=== PATIENT | male | born 1970 | race Caucasian/White ===

== ENCOUNTER 2016-10-27 12:10 | Emergency (ER) | payer BC, OTHER ==
--- NOTE | 2016-10-27 12:23 | PDOC ---
History of Present Illness - General Chief Complaint: Injury Stated Complaint: FELL, RIGHT THIGH & MOMIN,LEFT WRIST/HAND INJURY Time Seen by Provider: 10/27/16 12:23 History Source: Patient Exam Limitations: No Limitations - History of Present Illness Initial Comments: 10/27/16 12:46 THis is a 45 yo M with a history of HTN, HLD, CAD s/p prior ID and stent, Tobacco use Pt presents to the ER with a complaint of forearm and leg pain s/p mechanical fall Pt states he exited [employer], tripped over a "u boat" He landed on the right thigh No head trauma No loc No amnesia Pt got up on his own and has been ambulatory Pt took Aleeve for pain which caused him to fall asleep currently, pain is present with certain motions and with palpation of the right thigh and left wrist Rates pain 6/10, no radiation Improved with Aleeve, worse with movement or palpation Pt thought he would feel better today and when he did not, he came in for evaluation 10/27/16 13:06 PMH: HTN, HLD, CAD, PSH: stent placement Meds: Aspirin,Lipitor, Metoprolol ALL: please see chart Social (+) tobacco use GENERAL/CONSTITUTIONAL: No: fever, chills, weakness, loss of appetite. HEAD, EYES, EARS, NOSE AND THROAT: No: change in vision, ear pain, discharge, sore throat, throat swelling. CARDIOVASCULAR: No: chest pain, lightheadedness, palpitations, syncope RESPIRATORY: No: cough, shortness of breath, wheezing, hemoptysis, stridor. GASTROINTESTINAL: No: nausea, vomiting, diarrhea, abdominal cramping, rectal bleeding, constipation. GENITOURINARY: No: dysuria, hematuria, frequency, urgency, flank pain. MUSCULOSKELETAL: Yes: left wrist pain, right thigh pain SKIN: Yes: momin abrasion NEUROLOGIC: No: headache, vertigo, paresthesias, weakness ENDOCRINE: No: unexplained weight gain or loss HEMATOLOGIC/LYMPHATIC: No: anemia, easy bleeding, swelling nodes. GENERAL: The patient is in no acute distress. HEAD: Normal with no signs of trauma. EYES: PERRLA, EOMI, sclera anicteric, conjunctiva clear. ENT: Ears normal, nares patent, oropharynx clear without exudates. Moist mucous membranes. NECK: Normal range of motion, supple without lymphadenopathy, JVD, or masses. LUNGS: Breath sounds equal, clear to auscultation bilaterally. No wheezes, and no crackles. HEART:Regular rate and rhythm, normal S1 and S2 without murmur, rub or gallop. ABDOMEN: Soft, nontender, normoactive bowel sounds. No guarding, no rebound. No masses palpable. EXTREMITIES: Normal range of motion NEUROLOGICAL: Cranial nerves II through XII grossly intact. Normal speech. No focal neurological deficits. MUSCULOSKELETAL: Left wrist ulnar tenderness, (+) right thigh tenderness SKIN: 1.5 cm superficial abrasion with scab Past History - Past Medical History Allergies/Adverse Reactions: Allergies Allergy/AdvReac Type Severity Reaction Status Date / Time erythromycin base Allergy Unknown Verified 10/27/16 12:24 erythromycin lactobionate Allergy Unknown Verified 10/27/16 12:24 [From Erythrocin] Penicillins Allergy Unknown Verified 10/27/16 12:24 Home Medications: Ambulatory Orders Aspirin [Aspirin EC] 81 mg PO DAILY 10/27/16 Atorvastatin Ca [Lipitor] 40 mg PO HS 10/27/16 Methocarbamol [Robaxin -] 500 mg PO TID PRN #30 tablet 10/27/16 Metoprolol Succinate [Toprol Xl -] 25 mg PO HS 10/27/16 Naproxen [Naprosyn -] 500 mg PO BID PRN #14 tablet 10/27/16 Medical Decision Making - Medical Decision Making 10/27/16 13:13 Will do xray Will do pain medications Will discharge to home Follow up with PMD 10/27/16 14:09 Xrays negative Will discharge to home Follow up with PMD *DC/Admit/Observation/Transfer Diagnosis at time of Disposition: Musculoskeletal pain - Discharge Dispostion Disposition: HOME Condition at time of disposition: Good Admit: No - Prescriptions Prescriptions: Naproxen [Naprosyn -] 500 mg PO BID PRN #14 tablet PRN Reason: Pain Methocarbamol [Robaxin -] 500 mg PO TID PRN #30 tablet PRN Reason: muscular pain - Referrals Referrals: Guy Haddad MD [Primary Care Provider] - Mert Joya MD [Staff Physician] - - Patient Instructions Printed Discharge Instructions: DI for Musculoskeletal Pain Additional Instructions: Thank you for coming in to the ER today Please take pain medications as prescribed Return to the ER for any other concerns or complaints - Post Discharge Activity Work/School Note: Back to Work
[2016-10-27 12:41] VITALS: BP 123/84; PULSE 74; TEMP 98.7; BMI 29.8
== END 2016-10-27 14:22 | disposition home or self-care (01) ==
LOC: FER 12:10
DX: M79.1 Myalgia (principal); W01.0XXA Fall on same level from slipping, tripping and stumbling without subsequent striking against object, initial encounter; Y93.89 Activity, other specified; Y92.481 Parking lot as the place of occurrence of the external cause; Z95.5 Presence of coronary angioplasty implant and graft; I10 Essential (primary) hypertension; E78.5 Hyperlipidemia, unspecified; I25.10 Atherosclerotic heart disease of native coronary artery without angina pectoris; Z79.82 Long term (current) use of aspirin
CPT/HCPCS: 73110-TC-LT; 73552-TC-RT; 99281-25

== ENCOUNTER 2017-06-21 13:29 | Emergency (ER) | payer OTHER ==
[2017-06-21 13:37] VITALS: BP 124/78; PULSE 85; TEMP 98.4; BMI 28.2
--- NOTE | 2017-06-21 14:09 | PDOC ---
History of Present Illness <Patrick Avelar - Last Filed: 06/21/17 16:17> - History of Present Illness Initial Comments: 06/21/17 14:15 The patient is a 46 year old male, with a significant past medical history of hypertension, hyperlipidemia, and MS s/p cardiac stent x1 (9 years ago), who presents to the emergency department with pain to his right foot and ankle since yesterday at 1PM when a 4,000 lb power zeb ran over his right foot at work. He states he was wearing sneakers at the time of injury. He reports his pain as localized over the dorsum of his right foot and anterolateral right ankle. He reports the pain is worse at rest, described as throbbing, which is slightly alleviated with walking. He denies numbness or tingling to his right foot. He reportedly iced the injured foot for about an hour following the injury , and again today after work. He denies use of OTC medication for pain. He denies chest pain, shortness of breath, headache and dizziness. He denies fever, chills, nausea, vomit, diarrhea and constipation. He denies dysuria, frequency, urgency and hematuria. Allergies: penicillin and erythromycin Social history: 1ppd tobacco, occasional EtOH. <Margarita Ho - Last Filed: 06/21/17 17:00> - General Chief Complaint: Injury Stated Complaint: RIGHT FOOT PAIN Time Seen by Provider: 06/21/17 13:38 Past History - Past Medical History Cardiac Disorders: Yes ([place], STENT X1) COPD: No HTN: Yes Hypercholesterolemia: Yes - Surgical History Cardiac Surgery: Yes (STENT X1) - Suicide/Smoking/Psychosocial Hx Smoking History: Current every day smoker Number of Cigarettes Smoked Daily: 20 Information on smoking cessation initiated: Yes 'Breaking Loose' booklet given: 10/27/16 Hx Alcohol Use: Yes (OCCASIONAL) Drug/Substance Use Hx: No Substance Use Type: None <Patrick Avelar - Last Filed: 06/21/17 16:17> <Margarita Ho - Last Filed: 06/21/17 17:00> - Past Medical History Allergies/Adverse Reactions: Allergies Allergy/AdvReac Type Severity Reaction Status Date / Time erythromycin base Allergy Unknown Verified 06/21/17 13:32 erythromycin lactobionate Allergy Unknown Verified 06/21/17 13:32 [From Erythrocin] Penicillins Allergy Unknown Verified 06/21/17 13:32 Home Medications: Ambulatory Orders Aspirin [Aspirin EC] 81 mg PO DAILY 10/27/16 Atorvastatin Ca [Lipitor] 40 mg PO HS 10/27/16 Metoprolol Succinate [Toprol Xl -] 25 mg PO HS 10/27/16 Review of Systems - Review of Systems Able to Perform ROS?: Yes Is the patient limited Kinyarwanda proficient: No Constitutional: No: Chills, Diaphoresis, Fever, Weakness HEENTM: No: Recent change in vision, Ear Pain, Throat Pain Respiratory: No: Shortness of Breath Cardiac (ROS): No: Chest Pain, Edema, Syncope ABD/GI: No: Nausea, Vomiting Musculoskeletal: Yes: Symptoms Reported, Other (Right foot and ankle pain). No : Back Pain, Joint Swelling, Neck Pain Integumentary: No: Bruising All Other Systems: Reviewed and Negative <Margarita Ho - Last Filed: 06/21/17 17:00> *Physical Exam - Vital Signs Last Vital Signs Temp Pulse Resp BP Pulse Ox 98.4 F 85 16 124/78 96 06/21/17 13:30 06/21/17 13:30 06/21/17 13:30 06/21/17 13:30 06/21/17 13:30 - Physical Exam General Appearance: Yes: Nourished, Appropriately Dressed, Mild Distress HEENT: positive: ALVINO Neck: positive: Supple Cardiovascular: positive: Regular Rhythm Extremity: positive: Normal Capillary Refill, Normal Inspection, Other ( Tenderness on the back of the foot, Colony's normal, ankle normal) <Patrick Avelar S - Last Filed: 06/21/17 16:17> - Vital Signs Last Vital Signs Temp Pulse Resp BP Pulse Ox 98.4 F 85 16 124/78 96 06/21/17 13:30 06/21/17 13:30 06/21/17 13:30 06/21/17 13:30 06/21/17 13:30 <Margarita Ho - Last Filed: 06/21/17 17:00> ED Treatment Course - RADIOLOGY Radiograph Interpretation: 06/21/17 16:17 Right foot xray read by me Impression: No evidence of acute fractures or bony deformities. <Margarita Ho - Last Filed: 06/21/17 17:00> Medical Decision Making - Medical Decision Making 06/21/17 14:18 The patient was evaluated upon arrival. The patient is a 46yoM who presents with right foot pain after being run over by a "power zeb" yesterday at 1PM. The patient denies use of pain medication. Pt refused pain medication when offered here in the ED. I will obtain xrays to r/o Fractures. <Margarita Ho - Last Filed: 06/21/17 17:00> *DC/Admit/Observation/Transfer - Discharge Dispostion Admit: No <Patrick Avelar - Last Filed: 06/21/17 16:17> - Attestations Scribe Attestion: 06/21/17 14:20 Documentation prepared by Margarita Ho, acting as territory sales manager medical for Patrick Avelar MD <Margarita Ho - Last Filed: 06/21/17 17:00> Diagnosis at time of Disposition: Foot trauma Qualifiers: Encounter type: initial encounter Laterality: right Qualified Code(s): S99.921A - Unspecified injury of right foot, initial encounter - Discharge Dispostion Disposition: HOME Condition at time of disposition: Stable - Referrals Referrals: Guy Haddad MD [Primary Care Provider] - Frandy Corea MD [Staff Physician] - - Patient Instructions Printed Discharge Instructions: DI for Foot Pain Additional Instructions: Foot elevation , Motrin if pain Follow up with your doctor - Post Discharge Activity Forms/Work/School Notes: Back to Work
== END 2017-06-21 16:25 | disposition home or self-care (01) ==
LOC: FER 13:29
DX: S99.921A Unspecified injury of right foot, initial encounter (principal); W20.8XXA Other cause of strike by thrown, projected or falling object, initial encounter; Y93.89 Activity, other specified; Y92.9 Unspecified place or not applicable; Y99.0 Civilian activity done for income or pay; I10 Essential (primary) hypertension; E78.5 Hyperlipidemia, unspecified; I25.2 Old myocardial infarction; Z95.5 Presence of coronary angioplasty implant and graft
CPT/HCPCS: 73630-TC-RT; 99281-25

== ENCOUNTER 2017-06-22 14:19 | Emergency (ER) | payer OTHER ==
[2017-06-22 14:49] VITALS: BP 124/80; PULSE 83; TEMP 98; BMI 28.2
--- NOTE | 2017-06-22 14:51 | PDOC ---
Rapid Medical Evaluation Chief Complaint: Laceration Time Seen by Provider: 06/22/17 14:50 Medical Evaluation: Allergies Allergy/AdvReac Type Severity Reaction Status Date / Time erythromycin base Allergy Unknown Verified 06/22/17 14:46 erythromycin lactobionate Allergy Unknown Verified 06/22/17 14:46 [From Erythrocin] Penicillins Allergy Unknown Verified 06/22/17 14:46 Vital Signs Temp Pulse Resp BP Pulse Ox 98 F 83 19 124/80 98 06/22/17 14:46 06/22/17 14:46 06/22/17 14:46 06/22/17 14:46 06/22/17 14:46 06/22/17 14:50 I performed a brief in-person evaluation of this patient. 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 Complaining of pain at site. Unknown tetanus status Pertinent physical exam findings: NAD unlabored breathing dressing in place on left hand I have ordered the following: tetanus vaccine The patient will proceed to the Ed for further evaluation Discharge Disposition - Referrals Referrals: Guy Haddad MD [Primary Care Provider] - - Patient Instructions - Post Discharge Activity
[2017-06-22] MEDS ORDERED: DIPHTH,PERTUSS(ACELL),TET 0.5 ML DISP.SYRIN IM ONE (14:52)
--- NOTE | 2017-06-22 17:00 | PDOC ---
History of Present Illness - General Chief Complaint: Laceration Stated Complaint: LEFT HAND INJURY ON THE JOB Time Seen by Provider: 06/22/17 14:50 History Source: Patient Exam Limitations: No Limitations - History of Present Illness Initial Comments: 06/22/17 17:13 CHIEF COMPLAINT: Laceration to dorsum of right hand base of right second finger. HISTORY OF PRESENT ILLNESS: Patient is a 46-year-old male history of [place], stents , hypertension, presents with laceration to dorsum of the base of left second finger. 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 No active bleeding. Good range of motion, no tendon involvement. Timing/Duration: reports: this afternoon Severity: Yes: moderate Location: reports: extremities Past History - Past Medical History Allergies/Adverse Reactions: Allergies Allergy/AdvReac Type Severity Reaction Status Date / Time erythromycin base Allergy Unknown Verified 06/22/17 14:46 erythromycin lactobionate Allergy Unknown Verified 06/22/17 14:46 [From Erythrocin] Penicillins Allergy Unknown Verified 06/22/17 14:46 Home Medications: Ambulatory Orders Aspirin [Aspirin EC] 81 mg PO DAILY 10/27/16 Atorvastatin Ca [Lipitor] 40 mg PO HS 10/27/16 Metoprolol Succinate [Toprol Xl -] 25 mg PO HS 10/27/16 Cardiac Disorders: Yes ([place], STENT X1) COPD: No HTN: Yes Hypercholesterolemia: Yes - Surgical History Cardiac Surgery: Yes (STENT X1) - Suicide/Smoking/Psychosocial Hx Smoking History: Current every day smoker Have you smoked in the past 12 months: Yes Number of Cigarettes Smoked Daily: 20 Information on smoking cessation initiated: No 'Breaking Loose' booklet given: 06/21/17 Hx Alcohol Use: Yes (OCCASIONAL) Drug/Substance Use Hx: No Substance Use Type: None Review of Systems - Review of Systems Constitutional: No: Symptoms Reported Musculoskeletal: No: Joint Pain, Joint Swelling, Muscle Pain, Muscle Weakness Integumentary: Yes: Other (3 cm laceration dorsum of the left hand base of left second finger) Neurological: Yes: Tingling, Tremors *Physical Exam - Vital Signs Last Vital Signs Temp Pulse Resp BP Pulse Ox 98 F 83 19 124/80 98 06/22/17 14:46 06/22/17 14:46 06/22/17 14:46 06/22/17 14:46 06/22/17 14:46 - Physical Exam General Appearance: Yes: Appropriately Dressed. No: Apparent Distress Musculoskeletal: positive: Normal Inspection. negative: Decreased Range of Motion Extremity: positive: Normal Capillary Refill, Normal Inspection, Normal Range of Motion. negative: Tender, Swelling, Erythema, Inflammation Integumentary: positive: Normal Color, Dry, Other (3 cm laceration to the dorsum of the left hand base of left second finger. The vomit, good range of motion, no bone exposure. Periosteum is intact.). negative: Erythema, Swelling , Ecchymosis, Bruising Neurologic: positive: Alert, Normal Mood/Affect, Normal Response, Motor Strength 5/5 Procedures - Laceration/Wound Repair Left Dorsal Hand Wound Length: 2.6 to 5.0 cm Wound Explored: clean Wound's Depth, Shape: linear Irrigated w/ Saline: Yes Betadine Prep: Yes Anesthesia: 1% Lidocaine Amount of Anesthetic (ccs): 3 Wound Repaired With: Sutures Suture Size/Type: 5:0 Number of Sutures: 6 Layer Closure: No Sterile Dressing Applied: No Splint Applied: No Sling Applied: No ED Treatment Course - Medications Given in the ED: ED Medications Discontinued Medications Generic Name Dose Route Start Last Admin Trade Name Freq PRN Reason Stop Dose Admin Diphtheria/Tetanus/Acell Pertussis 0.5 ml 06/22/17 14:52 06/22/17 15:50 Boostrix - IM 06/22/17 14:53 0.5 ml .ONCE ONE Administration Medical Decision Making - Medical Decision Making 06/22/17 17:17 A/P: Patient here with laceration to dorsum of left hand, sutures are placed tolerated procedure well, DC patient home Tylenol as needed for pain bacitracin applied after suturing strict instructions for care and follow-up given to patient. He verbalized understanding. *DC/Admit/Observation/Transfer Diagnosis at time of Disposition: Laceration of right hand Qualifiers: Encounter type: initial encounter Foreign body presence: without foreign body Qualified Code(s): S61.411A - Laceration without foreign body of right hand, initial encounter - Discharge Dispostion Disposition: HOME Condition at time of disposition: Good Admit: No - Referrals Referrals: Guy Haddad MD [Primary Care Provider] - - Patient Instructions Printed Discharge Instructions: DI for Laceration Repair Additional Instructions: Keep area clean dry and intact Keep dressing on until tomorrow If any increased bleeding through the dressing return immediately to emergency department Keep area clean dry and intact bacitracin x3 days, then let it dry out Please return in 10 days for suture removal. Please return immediately to emergency department with any increased redness, swelling, signs of infection - Post Discharge Activity Forms/Work/School Notes: Back to Work
== END 2017-06-22 17:02 | disposition home or self-care (01) ==
LOC: JERFT 14:19
PROC: 0HQGXZZ Repair Left Hand Skin, External Approach (ICD-10-PCS; principal; 2017-06-22)
PROC: 3E0234Z Introduction of Serum, Toxoid and Vaccine into Muscle, Percutaneous Approach (ICD-10-PCS; 2017-06-22)
DX: S61.412A Laceration without foreign body of left hand, initial encounter (principal); W27.8XXA Contact with other nonpowered hand tool, initial encounter; Y93.89 Activity, other specified; Y92.512 Supermarket, store or market as the place of occurrence of the external cause; Y99.0 Civilian activity done for income or pay; I25.10 Atherosclerotic heart disease of native coronary artery without angina pectoris; I11.9 Hypertensive heart disease without heart failure; Z95.5 Presence of coronary angioplasty implant and graft; Z72.0 Tobacco use
CPT/HCPCS: 90715; 99281-25

== ENCOUNTER 2017-07-04 15:57 | Emergency (ER) | payer OTHER ==
--- NOTE | 2017-07-04 16:08 | PDOC ---
Rapid Medical Evaluation Chief Complaint: Suture/Staple Removal(Here) Time Seen by Provider: 07/04/17 16:06 Medical Evaluation: Allergies Allergy/AdvReac Type Severity Reaction Status Date / Time erythromycin base Allergy Unknown Verified 06/22/17 14:46 erythromycin lactobionate Allergy Unknown Verified 06/22/17 14:46 [From Erythrocin] Penicillins Allergy Unknown Verified 06/22/17 14:46 07/04/17 16:06 The patient presents with a chief complaint of: suture removal left hand I have performed a brief in-person evaluation of this patient. Pertinent physical exam findings: band aid over left 2nd finger I have ordered the following: none The patient will proceed to the ED for further evaluation. Discharge Disposition - Diagnosis Visit for suture removal - Referrals - Patient Instructions - Post Discharge Activity
[2017-07-04 16:09] VITALS: BP 130/71; PULSE 78; TEMP 98.6; BMI 28.2
--- NOTE | 2017-07-04 16:31 | PDOC ---
Suture Removal/Wound Check HPI - History of Present Illness Chief Complaint: Suture/Staple Removal(Here) Stated Complaint: SUTURE REMOVAL Time Seen by Provider: 07/04/17 16:06 History Source: Yes: Patient Exam Limitations: Yes: No Limitations Treated at: [facility] ED - Previous ED Treatment Type of procedure performed on last visit: Yes: Laceration Repair Tetanus Immunization: Yes: Up to Date Antibiotics Prescribed: No - Onset of Previous Treatment Date of Occurence: 06/22/17 Select one - (for the option above): Days Past History - Travel Traveled outside of the country in the last 30 days: No Close contact w/someone who was outside of country & ill: No - Past Medical History Allergies/Adverse Reactions: Allergies Allergy/AdvReac Type Severity Reaction Status Date / Time erythromycin base Allergy Unknown Verified 06/22/17 14:46 erythromycin lactobionate Allergy Unknown Verified 06/22/17 14:46 [From Erythrocin] Penicillins Allergy Unknown Verified 06/22/17 14:46 Home Medications: Ambulatory Orders Aspirin [Aspirin EC] 81 mg PO DAILY 10/27/16 Atorvastatin Ca [Lipitor] 40 mg PO HS 10/27/16 Metoprolol Succinate [Toprol Xl -] 25 mg PO HS 10/27/16 Cardiac Disorders: Yes ([place], STENT X1) COPD: No DVT: No HTN: Yes Hypercholesterolemia: Yes - Surgical History Cardiac Surgery: Yes (STENT X1) - Immunization History Immunization Up to Date: Yes - Suicide/Smoking/Psychosocial Hx Smoking History: Current every day smoker Have you smoked in the past 12 months: Yes Number of Cigarettes Smoked Daily: 20 Information on smoking cessation initiated: No 'Breaking Loose' booklet given: 06/21/17 Hx Alcohol Use: No Drug/Substance Use Hx: No Substance Use Type: None Suture Removal/Wound Check PE - Physical Exam Laceration/Wound Check Symptoms: reports: None Current Severity Level: None Maximum Severity Level: None Pain Localization: None *Review of Systems - Review of Systems Able to Perform ROS?: Yes Constitutional: Yes: See HPI. No: Symptoms Reported Integumentary: Yes: See HPI, Other (6 sutures with no complaints to left MCP index finger dorsum). No: Symptoms Reported All Other Systems: Reviewed and Negative Medical Decision Making - Medical Decision Making 07/04/17 16:30 6 sutures removed , welll approximated , steristrips applied. *DC/Admit/Observation/Transfer Diagnosis at time of Disposition: Visit for suture removal - Discharge Dispostion Disposition: HOME Condition at time of disposition: Stable Admit: No - Referrals Referrals: Guy Haddad MD [Primary Care Provider] - - Patient Instructions Printed Discharge Instructions: DI for Suture Removal - Post Discharge Activity
== END 2017-07-04 16:46 | disposition home or self-care (01) ==
LOC: JERFT 15:57
DX: Z48.02 Encounter for removal of sutures (principal)
CPT/HCPCS: 99281-25

== ENCOUNTER 2019-04-13 08:34 | Inpatient (IN) | payer BC, OTHER ==
--- NOTE | 2019-04-13 09:19 | PDOC ---
History of Present Illness - General Chief Complaint: Pain Stated Complaint: ABD CRAMPS Time Seen by Provider: 04/13/19 09:08 - History of Present Illness Initial Comments: 04/13/19 09:23 The patient is a 48 year old male with a PMH of [place] (s/p LAD stent 6-7 years previous) and HTN who presents with two days of abdominal pain. Pain is localized to his upper abdomen, intermittent and described as "twisting." Endorses 2-3 days of greasy stools with some dark and bright red blood. Last PO intake was yesterday. Vomited Pepto Bismol this morning. Denies any chest pain, shortness of breath, palpitations, lightheadedness, lower extremity swelling. H/o negative stress testing 5 years previous, some evaluations with Dr. Tran but has not been evaluated recently. Smokes 1-1/2 PPD. Allergy: Penicillin, Erythromycin Surgical: LAD Stent PMD: Dr. Haddad Past History - Past Medical History Allergies/Adverse Reactions: Allergies Allergy/AdvReac Type Severity Reaction Status Date / Time erythromycin lactobionate Allergy Severe Swelling Verified 04/13/19 16:25 [From Erythrocin] Penicillins Allergy Severe Swelling Verified 04/13/19 16:28 erythromycin base Allergy Unknown Verified 04/13/19 08:48 Home Medications: Ambulatory Orders Aspirin [Aspirin EC] 81 mg PO DAILY 10/27/16 Atorvastatin Ca [Lipitor] 40 mg PO HS 10/27/16 Metoprolol Succinate [Toprol Xl -] 25 mg PO HS 10/27/16 Cardiac Disorders: Yes ([place], STENT X1) COPD: No DVT: No HTN: Yes Hypercholesterolemia: Yes - Surgical History Cardiac Surgery: Yes (STENT X1) - Immunization History Immunization Up to Date: Yes - Psycho Social/Smoking Cessation Hx Smoking History: Current every day smoker Have you smoked in the past 12 months: Yes Number of Cigarettes Smoked Daily: 20 Information on smoking cessation initiated: No 'Breaking Loose' booklet given: 06/21/17 Hx Alcohol Use: No Drug/Substance Use Hx: No Substance Use Type: None Review of Systems - Review of Systems HEENTM: No: Recent change in vision, Throat Pain Respiratory: No: Cough, Shortness of Breath, Wheezing Cardiac (ROS): No: Chest Pain, Lightheadedness, Palpitations, Syncope ABD/GI: Yes: Diarrhea, Vomiting, Abdominal cramping : No: Burning, Dysuria Musculoskeletal: Yes: Back Pain (chronic) Neurological: No: Numbness, Tingling *Physical Exam - Vital Signs Last Vital Signs Temp Pulse Resp BP Pulse Ox 97.6 F 75 18 128/86 98 04/13/19 08:45 04/13/19 08:45 04/13/19 08:45 04/13/19 08:45 04/13/19 08:45 - Physical Exam General Appearance: Yes: Nourished, Appropriately Dressed HEENT: positive: Normal Voice, Hearing Grossly Normal Neck: positive: Trachea midline, Supple Respiratory/Chest: positive: Lungs Clear, Normal Breath Sounds Cardiovascular: positive: Regular Rhythm, S1, S2 Vascular Pulses: Dorsalis-Pedis (R): 2+, Doralis-Pedis (L): 2+ Gastrointestinal/Abdominal: positive: Other (soft abdomen with diffuse TTP w/o peritoneal sign, (+) bowel sounds) Rectal Exam: positive: heme negative stool Musculoskeletal: negative: CVA Tenderness (R), CVA Tenderness (L) Extremity: positive: Normal Capillary Refill, Normal Inspection Integumentary: positive: Normal Color, Dry, Warm Neurologic: positive: Fully Oriented, Alert Heart Score/ECG Review - ECG Impressions Comment:: 04/13/19 10:29 NSR HR 72, MARCELO in leads in septal/anterior leads c/w previous ECG dated 2014 ED Treatment Course - LABORATORY CBC & Chemistry Diagram: 04/16/19 07:24 04/16/19 07:24 Medical Decision Making - Medical Decision Making 04/13/19 10:13 48 y/o male presents with 2 day h/o abdominal pain, bloody/greasy stools. Diffusely tender abdomen w/o peritoneal sign. Frontal diagnosis: colitis, diverticulitis, gastroenteritis, pancreatitis; also consider acute abdomen including SBO, mesenteric ischemia, bowel perforation, early appendicitis. 04/13/19 10:30 EKG w/o ischemic change FOBT pending 04/13/19 10:59 Patient w/ active NBNB emesis - Zofran 04/13/19 11:40 S/p Zofran, no active emesis, patient to CTAP/US 04/13/19 14:27 CTAP shows possible mid to distal SBO FOBT (+), Hb 10.7 (no baseline in EMR) - patient requires GI consult as inpatient Patient counseled on finding, amenable to admission. Surgery paged. Patient admitted hospitalist team. Case d/w Dr. Torres (General Surgery) will evaluate patient @ bedside. IV fluids, NPO Clinical Impression: SBO *DC/Admit/Observation/Transfer Diagnosis at time of Disposition: Small bowel obstruction - Discharge Dispostion Condition at time of disposition: Fair Decision to Admit order: Yes - Referrals - Patient Instructions - Post Discharge Activity Discharge - Discharge Information Problems reviewed: Yes Clinical Impression/Diagnosis: Small bowel obstruction Condition: Fair - Admission Yes - Additional Discharge Information Prescription Drug Monitoring Program (I-STOP) results: I-STOP reviewed and no issues identified
[2019-04-13] MEDS ORDERED: SODIUM CHLORIDE 0.9% 500 ML INFUS.BAG IV ONE (09:20)
[2019-04-13 10:38] LABS: BASO % 0.4 % (0-2.0); EOS % 0.1 % (0-4.5); HEMATOCRIT 53.3 % (35.4-49); HEMOGLOBIN 17.9 GM/dL (11.7-16.9); MCH 32.1 pg (25.7-33.7); MCHC 33.7 g/dl (32.0-35.9); MEAN CELL VOLUME 95.2 fl (80-96); MEAN PLT VOLUME 8.8 fl (7.5-11.1); MONO % 4.6 % (3.8-10.2); NEUT % 86.9 % (42.8-82.8); PLATELET COUNT 192 K/MM3 (134-434); WHITE BLOOD COUNT 10.7 K/mm3 (4.0-10.0)
[2019-04-13] MEDS ORDERED: FAMOTIDINE 20 MG/50 ML IVPB 20 MG/50 ML MG IVPB ONE ×2 (10:38→10:59)
[2019-04-13] MEDS ORDERED: ACETAMINOPHEN 1000 MG/100 ML VIAL (NON FORMULARY) IVPB ONE (10:38)
[2019-04-13 10:52] LABS: PROTHROMBIN TIME (PATIENT) 11.8 SEC (9.7-13.0)
[2019-04-13] MEDS ORDERED: ACETAMINOPHEN INJECTION 100 ML IVPB ONE (10:59)
[2019-04-13 11:00] LABS: BILIRUBIN,TOTAL 0.5 mg/dL (0.2-1); BLOOD UREA NITROGEN 17.5 mg/dL (7-18); CALCIUM 9.5 mg/dL (8.5-10.1); CREATININE 0.8 mg/dL (0.55-1.3); POTASSIUM 4.3 mmol/L (3.5-5.1); TOT PROT 7.2 g/dl (6.4-8.2)
--- NOTE | 2019-04-13 11:00 | PDOC ---
Attending Attestation - Resident Resident Name: Susan Mukherjee - ED Attending Attestation I have performed the following: I have examined & evaluated the patient, The case was reviewed & discussed with the resident, I agree w/resident's findings & plan, Exceptions are as noted - HPI HPI: 04/13/19 10:53 48 M with h/o HTN, HLD, CAD/PR s/p stents, presenting to ED with abdominal pain and vomiting. Pt states that the pain started this morning. It wraps around the top of his abdomen. Pt denies CP/SOB. Pt notes that he feels his abdomen is distended and hard. Denies any prior abdominal surgeries. - Physicial Exam PE: 04/13/19 10:56 GENERAL: Awake, alert, and fully oriented, in no acute distress. HEAD: No signs of trauma EYES: PERRLA, EOMI, sclera anicteric, conjunctiva clear ENT: Auricles normal inspection, hearing grossly normal, nares patent, oropharynx clear without exudates. Moist mucosa NECK: Nontender, no stepoffs, Normal ROM, supple, no lymphadenopathy, JVD, or masses LUNGS: Breath sounds equal, clear to auscultation bilaterally. No wheezes, and no crackles HEART: Regular rate and rhythm, normal S1 and S2, no murmurs, rubs or gallops ABDOMEN: + diffusely tender, normoactive bowel sounds. No guarding, no rebound. No masses EXTREMITIES: Normal range of motion, no edema. No clubbing or cyanosis. No cords, erythema, or tenderness NEUROLOGICAL: Cranial nerves II through XII intact. 5/5 strength and sensation in all extremities, Normal speech, normal gait, normal cerebellar function SKIN: Warm, Dry, normal turgor, no rashes or lesions noted. - Medical Decision Making 04/13/19 10:56 48 M with diffuse abdominal tenderness, vomiting. - Labs, lipase - CTAP - IVF, GI cocktail 04/13/19 13:36 CT shows likely SBO surgery consulted
[2019-04-13] MEDS: SODIUM CHLORIDE 1,000 ML IV SCH ×2 (14:02→22:56)
[2019-04-13] MEDS ORDERED: morphine CARPU-JECT 4 MG/1 ML DISP.SYRIN IVPUSH ONE (15:24)
[2019-04-13] MEDS ORDERED: morphine SULFATE 4 MG/ML VIAL ONE (15:30)
[2019-04-13] MEDS ORDERED: MORPHINE SULFATE 2 MG/ML VIAL IVPUSH PRN (15:58)
[2019-04-13] MEDS ORDERED: ACETAMINOPHEN 1000 MG/100 ML VIAL (NON FORMULARY) IVPB PRN (16:01)
--- NOTE | 2019-04-13 16:25 | HP ---
Admitting History and Physical - Primary Care Physician PCP: Guy Haddad - Admission Chief Complaint: abd pain History of Present Illness: 48 y/o man with h/o HTN, CAD s/p MT, s/p stents in 2011, lumbar herniated disks who presented with abd pain x 1 day. He has been having black stool x 2 days. Yesterday and after eating dinner he started having epigastric abd pain with nausea and vomited non bloody non bilious emesis. Later during the night, he woke up and found big amount of bright red blood in his underwear. Last BM was yesterday am, and after which he denies any flatus. He denies any abdominal surgeries, colonoscopies or EGDs. He denies use of NSAIds, but is supposed to be on asa daily which he is not compliant with. His last use of ASa was 8 days ago In ER, he had CT scan which showed possible SBO with thickening of transverse and descending colon. He was given IVF, adn Dr. torres was called. History Source: Patient, Family Member Limitations to Obtaining History: No Limitations - Past Medical History Cardiovascular: Yes: HTN, [place] (s/p LAD stents in 2011) Musculoskeletal: Yes: Other (L spine herniated disks) - Past Surgical History Past Surgical History: Yes: None - Smoking History Smoking history: Current every day smoker Have you smoked in the past 12 months: Yes Aproximately how many cigarettes per day: 20 - Alcohol/Substance Use Hx Alcohol Use: Yes (occasional beer drinker ) History of Substance Use: reports: None - Social History Usual Living Arrangement: Yes: With Spouse ADL: Independent Home Medications - Allergies Allergies/Adverse Reactions: Allergies Allergy/AdvReac Type Severity Reaction Status Date / Time erythromycin lactobionate Allergy Severe Swelling Verified 04/13/19 16:25 [From Erythrocin] Penicillins Allergy Severe Swelling Verified 04/13/19 16:28 erythromycin base Allergy Unknown Verified 04/13/19 08:48 - Home Medications Home Medications: Ambulatory Orders Aspirin [Aspirin EC] 81 mg PO DAILY 10/27/16 Atorvastatin Ca [Lipitor] 40 mg PO HS 10/27/16 Metoprolol Succinate [Toprol Xl -] 25 mg PO HS 10/27/16 Home Medications (free text): he is supposed to be on those meds but he hull snot take them . last use of asa a week ago Family Medical History Other Family History: mother with liver disease Review of Systems - Review of Systems Constitutional: denies: Chills, Diaphoresis, Fever, Lethargy, Malaise, Night Sweats Eyes: denies: Blind Spots, Blurred Vision, Double Vision, Recent Change in Vision HENT: denies: Difficult Swallowing, Ear Discharge, Ear Pain, Hearing Loss, Mouth Swelling Neck: denies: Decreased ROM, Lumps, Pain on Movement, Tenderness Cardiovascular: denies: Chest Pain, Edema, Palpitations, Shortness of Breath Respiratory: denies: Cough, Exercise Intolerance, Hemoptysis, Orthopnea, SOB, SOB on Exertion Gastrointestinal: reports: Abdominal Pain, Bloating, Melena, Nausea, Rectal Bleeding, Vomiting (non bloody . last night) Genitourinary: denies: Discharge, Dysuria, Flank Pain, Frequency, Lesions, Pain Breasts: denies: Pain Musculoskeletal: reports: Back Pain. denies: Extremity Pain, Joint Pain, Joint Swelling Integumentary: denies: Bruising, Eczema, Lump Neurological: denies: Change in LOC, Change in Speech, Confusion, Dizziness, Numbness, Parasthesia, Tremors Endocrine: denies: Flushing, Intolerance to Cold, Intolerance to Heat Hematology/Lymphatic: denies: Easily Bruised, Excessive Bleeding, Swollen Glands Psychiatric: denies: Altered Sleep Pattern, Anxiety, Depression Physical Examination Vital Signs: Vital Signs Temperature 97.6 F 04/13/19 08:45 Pulse Rate 75 04/13/19 08:45 Respiratory Rate 18 04/13/19 08:45 Blood Pressure 128/86 04/13/19 08:45 O2 Sat by Pulse Oximetry (%) 99 04/13/19 14:17 Constitutional: Yes: Well Nourished, No Distress, Calm Eyes: Yes: Conjunctiva Clear, EOM Intact, Other (equal pupils.). No: Cataracts HENT: Yes: Atraumatic, Normocephalic, Other (poor dentition . MMM). No: Drooling, Epistaxis, Pharyngeal Erythema, Rhinnorhea, Thrush Neck: Yes: Supple, Trachea Midline, Other (no JVD). No: Lymphadenopathy, Tenderness Cardiovascular: Yes: Regular Rate and Rhythm, Bradycardia, Tachycardia, S1, S2. No: JVD, Gallop, Murmur, Rub Respiratory: Yes: Regular, CTA Bilaterally. No: Kussmaul Gastrointestinal: Yes: Soft, Distention, Hyperactive Bowel Sounds, Tenderness ( In all quadrants. no rebound tenderness or guarding.), Tenderness, Epigastrium. No: Palpable Mass, Tenderness, Rebound Musculoskeletal: Yes: Other (no tenderness over spine). No: Back Pain, Joint Stiffness Extremities: No: Cold, Cool, Cyanosis, Erythema Edema: No Peripheral Pulses WNL: Yes Peripheral Pulses: Left Radial: 2+, Right Radial: 2+, Left Doralis Pedis: 2+, Right Dorsalis Pedis: 2+ Neurological: Yes: Alert, Oriented. No: Aphasia, Facial Droop, Lethargy, Loss of Sensation, Numbness ...Motor Strength: WNL (5/5 in upper and lower extremities proxiamlly and distally. nl sesnation to ligh totuch. EOMI, round equal pupils, reactive to light. reflexes 2+ biceps . 3+ knee jerk b/l) Psychiatric: Yes: Alert, Oriented. No: Agitated Labs: CBC, BMP 04/13/19 10:20 04/13/19 10:20 Imaging - Results Chest X-ray: Report Reviewed Cat Scan: Report Reviewed EKG: Image Reviewed (sinus rhythm, RBBB, QTC 444) Assessment/Plan 48 y/o man with h/o HTN, CAD s/p MT, s/p stents in 2011, lumbar herniated disks who presented with abd pain x 1 day and rectal bleed x 3 days. He was found to have SBO and rectal bleed. 1- Possible SBO. transition point is not seen on Ct scan. No previous Abd surgeries. - Dr. Torres was made aware of the patient . - last use of ASA 8 days ago - NPO for now - coags and CBC reviewed. - IVF - Morphine and IV tylenol fro pain. - monitor electrolytes. - Not vomiting at this time, no need for NGT. - Pre-op risk stratification. this procedure is an intermediate risk procedure. he has no signs of ACS, CHF, or arrhythmias . EKG reviewed. functional status is probably 10 METs, has h/o MT and CAD but not active now. 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 this patient is at low risk for yohan-op cardiac complication for this intermediate risk procedure 2- Rectal bleed: there is thickening of the transverse and descending colon. ? colitis ( ischemic VS infectious/inflammatory) could this be IBD causing the bleed and obstruction ( Crohn's ) ? ischemic colitis given the bright red blood as in history in the setting of vomiting and transient hypotension had melena in past 2 days , ? upper source. - start PPI BID - will consult GI . call placed fro - no h/o colonoscopy or EGD . No NSAIDS use. intermittent use of ASA 3- h/o CAD : - not compliant with BB, statin and ASA. - hold for now and montiro vitals. will resume at dc 4- SCDs . hold chemical prophylaxis Visit type - Emergency Visit Emergency Visit: Yes ED Registration Date: 04/13/19 Care time: The patient presented to the Emergency Department on the above date and was hospitalized for further evaluation of their emergent condition. - New Patient This patient is new to me today: Yes Date on this admission: 04/13/19 - Critical Care Critical Care patient: No
[2019-04-13] MEDS ORDERED: PANTOPRAZOLE SODIUM 40 MG VIAL ONE (17:02)
[2019-04-13] MEDS: PANTOPRAZOLE SODIUM 40 MG VIAL IVPUSH SCH ×2 (17:10→22:56)
[2019-04-13 18:33] LABS: HEMATOCRIT 48.1 % (35.4-49); HEMOGLOBIN 15.9 GM/dL (11.7-16.9); MCH 31.7 pg (25.7-33.7); MCHC 33.2 g/dl (32.0-35.9); MEAN CELL VOLUME 95.7 fl (80-96); PLATELET COUNT 191 K/MM3 (134-434); RBC 5.02 M/mm3 (4.00-5.60); RDW 13.9 % (11.9-15.9); WHITE BLOOD COUNT 10.9 K/mm3 (4.0-10.0)
[2019-04-13] MEDS ORDERED: MORPHINE SULFATE 2 MG/ML VIAL ONE (18:40)
--- NOTE | 2019-04-13 20:21 | CONSULT ---
Consult Consult Specialty:: General Surgery Referred by:: Lillian Mukherjee Reason for Consultation:: SBO - History of Present Illness Chief Complaint: upper abdominal pain, n/v, black tarry stool then blood per rectum History of Present Illness: 48yo M smoker with HTN, HLD, h/o ND, CAD s/p LAD stent 2011 on baby asa daily ( last taken 8d ago), began having upper abdominal pain yesterday, associated with several black tarry stools followed by some bright red blood per rectum. He took pepto-bismol, but then had N/V and it came back up, though it helped the pain slightly. He also had sweats, but not fever or chills, and the pain persisted. He came to ER, where he had more vomiting. WBC 10.7 -> 10.9, H/H elevated at 17, now 15; fecal occult blood is positive. US showed fatty liver and no gallstones. CT shows colonic wall thickening from mid-transverse through sigmoid colon, some dilated proximal to mid-SB loops and a fecalized loop of mid small bowel with smaller caliber distal loops but no clear transition point , and a little free fluid in pelvis. He has had IV fluids and pain medication, with significant improvement in his pain. He is admitted to medicine, and surgery was asked to assess. He is seen and examined in ER holding, with family present. He reports no pain currently after medication, but is still somewhat tender. No further BM. No abdominal surgeries, no previous colonoscopy. Never had this before, never had rectal bleeding or black stools before. He also states his abdomen is a bit larger than usual. He has chronic back pain from herniated discs (no back surgery). He is resting comfortably. - History Source History Provided By: Patient Limitations to Obtaining History: No Limitations - Past Medical History Cardio/Vascular: Yes: CAD, HTN, Hyperlipdemia, [place] (s/p LAD stents in 2011) Musculoskeletal: Yes: Chronic low back pain, Other (L spine herniated disks) - Past Surgical History Past Surgical History: Yes: None. No: Colonoscopy - Alcohol/Substance Use Hx Alcohol Use: Yes (social/occasional beer drinker ) History of Substance Use: reports: None - Smoking History Smoking history: Current every day smoker Have you smoked in the past 12 months: Yes Aproximately how many cigarettes per day: 20 (1-1.5 ppd) If you are a former smoker, when did you quit?: (quit in past with patch) - Social History Usual Living Arrangement: With Spouse ADL: Independent Home Medications - Allergies Allergies/Adverse Reactions: Allergies Allergy/AdvReac Type Severity Reaction Status Date / Time erythromycin lactobionate Allergy Severe Swelling Verified 04/13/19 16:25 [From Erythrocin] Penicillins Allergy Severe Swelling Verified 04/13/19 16:28 erythromycin base Allergy Unknown Verified 04/13/19 08:48 - Home Medications Home Medications: Ambulatory Orders Aspirin [Aspirin EC] 81 mg PO DAILY 10/27/16 Atorvastatin Ca [Lipitor] 40 mg PO HS 10/27/16 Metoprolol Succinate [Toprol Xl -] 25 mg PO HS 10/27/16 Home Medications (free text): last took ASA 8 days ago (Sat); has not taken Toprol in "months" (checks BP at work and it is 'in good range'); takes statin Family Medical History Family Hx Cancer: Mother (breast in 50s) Family Hx Diabetes: Mother Review of Systems - Review of Systems Constitutional: reports: Diaphoresis. denies: Chills, Fever Eyes: denies: Blurred Vision, Recent Change in Vision HENT: reports: Other (poor dentition/missing teeth). denies: Difficult Swallowing, Throat Pain Neck: denies: Swollen Glands, Tenderness Cardiovascular: denies: Chest Pain, Palpitations Respiratory: denies: Cough, SOB Gastrointestinal: reports: Abdominal Pain, Bloating, Melena, Nausea, Rectal Bleeding, Vomiting. denies: Constipation, Diarrhea, Vomiting Blood Genitourinary: denies: Burning, Dysuria, Hematuria Musculoskeletal: reports: Back Pain. denies: Joint Pain, Muscle Pain Integumentary: denies: Change in Color, Rash Neurological: denies: Dizziness, Headache Psychiatric: denies: Anxiety, Depression Physical Exam Vital Signs: Vital Signs Temperature 98.2 F 04/13/19 19:15 Pulse Rate 80 04/13/19 19:15 Respiratory Rate 16 04/13/19 19:15 Blood Pressure 126/78 04/13/19 19:15 O2 Sat by Pulse Oximetry (%) 97 04/13/19 19:15 Constitutional: Yes: Well Nourished, No Distress, Calm Eyes: Yes: Conjunctiva Clear, EOM Intact HENT: Yes: Atraumatic, Normocephalic Neck: Yes: Supple, Trachea Midline Cardiovascular: Yes: Regular Rate and Rhythm Respiratory: Yes: Regular, CTA Bilaterally Gastrointestinal: Yes: Soft, Distention (more than usual per pt, soft/not tense) , Hypoactive Bowel Sounds (present, light), Tenderness (RLQ, suprapubic more than other quadrants, but diffusely, no rebound or guarding) ...Rectal Exam: Yes: Deferred, Guaiac Positive (per lab from ER) Renal/: No: CVA Tenderness - Left, CVA Tenderness - Right Musculoskeletal: No: Joint Stiffness, Joint Swelling Extremities: No: Cool, Cyanosis Edema: No Peripheral Pulses WNL: Yes Integumentary: No: Jaundice, Rash Neurological: Yes: Alert, Oriented Psychiatric: Yes: Alert, Oriented Labs: CBC, BMP 04/13/19 17:58 04/13/19 10:20 CMP Sodium 138 mmol/L (136-145) 04/13/19 10:20 Potassium 4.3 mmol/L (3.5-5.1) 04/13/19 10:20 Chloride 104 mmol/L (98-107) 04/13/19 10:20 Carbon Dioxide 26 mmol/L (21-32) 04/13/19 10:20 Anion Gap 8 MMOL/L (8-16) 04/13/19 10:20 BUN 17.5 mg/dL (7-18) 04/13/19 10:20 Creatinine 0.8 mg/dL (0.55-1.3) 04/13/19 10:20 Est GFR (CKD-EPI)AfAm 120.72 04/13/19 10:20 Est GFR (CKD-EPI)NonAf 104.16 04/13/19 10:20 Random Glucose 132 mg/dL (74-106) H 04/13/19 10:20 Lactic Acid 1.2 mmol/L (0.4-2.0) 04/13/19 14:14 Calcium 9.5 mg/dL (8.5-10.1) 04/13/19 10:20 Total Bilirubin 0.5 mg/dL (0.2-1) 04/13/19 10:20 AST 11 U/L (15-37) L 04/13/19 10:20 ALT 28 U/L (13-61) 04/13/19 10:20 Alkaline Phosphatase 70 U/L (45-117) 04/13/19 10:20 Creatine Kinase 53 U/L (26-308) 04/13/19 10:20 Troponin I < 0.02 ng/ml (0.00-0.05) 04/13/19 10:20 Total Protein 7.2 g/dl (6.4-8.2) 04/13/19 10:20 Albumin 4.0 g/dl (3.4-5.0) 04/13/19 10:20 Lipase 142 U/L (73-393) 04/13/19 10:20 INR, PTT INR 1.00 (0.83-1.09) 04/13/19 10:20 initial H/H stool occult blood positive Imaging - Results Cat Scan: Report Reviewed, Image Reviewed (images reviewed - colon with thickened wall/inflammation from midtransverse to sigmoid, mildly dilated proximal SB loops with fecalization of a loop of small bowel, more distal loops decompressed without clear transition point - SBO vs ileus? no PO contrast used) Ultrasound: Report Reviewed (fatty liver vs liver disease, no gallstones or wall thickening of gb) Problem List - Problems (1) SBO (small bowel obstruction) Code(s): K56.609 - UNSP INTESTNL OBST, UNSP TO PARTIAL VERSUS COMPLETE OBST (2) Melena Code(s): K92.1 - MELENA (3) Blood per rectum Code(s): K62.5 - HEMORRHAGE OF ANUS AND RECTUM (4) Colitis Code(s): K52.9 - NONINFECTIVE GASTROENTERITIS AND COLITIS, UNSPECIFIED (5) Upper abdominal pain Code(s): R10.10 - UPPER ABDOMINAL PAIN, UNSPECIFIED (6) Nausea and vomiting Code(s): R11.2 - NAUSEA WITH VOMITING, UNSPECIFIED Qualifiers: Vomiting type: unspecified Vomiting Intractability: non-intractable Qualified Code(s): R11.2 - Nausea with vomiting, unspecified (7) Dehydration Code(s): E86.0 - DEHYDRATION (8) Hypertension Code(s): I10 - ESSENTIAL (PRIMARY) HYPERTENSION Qualifiers: Hypertension type: essential hypertension Qualified Code(s): I10 - Essential (primary) hypertension (9) Hyperlipidemia Code(s): E78.5 - HYPERLIPIDEMIA, UNSPECIFIED Qualifiers: Hyperlipidemia type: unspecified Qualified Code(s): E78.5 - Hyperlipidemia , unspecified (10) CAD (coronary artery disease), [place] coronary artery Code(s): I25.10 - ATHSCL HEART DISEASE OF [place] CORONARY ARTERY W/O ANG PCTRS Qualifiers: [place] vs. transplanted heart: [place] heart Associated angina: without angina Qualified Code(s): I25.10 - Atherosclerotic heart disease of [place] coronary artery without angina pectoris (11) Tobacco dependence due to cigarettes Code(s): F17.210 - NICOTINE DEPENDENCE, CIGARETTES, UNCOMPLICATED Assessment/Plan Patient with GI bleed - melena and BRBPR -- ischemic? infectious? inflammatory? other? GI consulted H/H not low, pt is dehydrated Needs fluid resuscitation HD stable, BPs normal with unknown baseline also with small bowel obstructive picture vs secondary ileus? 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 Cole
[2019-04-13 23:40] VITALS: BMI 29.2
[2019-04-14] MEDS: SODIUM CHLORIDE 1,000 ML IV SCH ×2 (05:58→21:25)
--- NOTE | 2019-04-14 07:07 | EKG ---
Test Reason : Blood Pressure : / mmHG Vent. Rate : 072 BPM Atrial Rate : 072 BPM P-R Int : 166 ms QRS Dur : 094 ms QT Int : 406 ms P-R-T Axes : 061 013 023 degrees QTc Int : 444 ms NORMAL SINUS RHYTHM INCOMPLETE RIGHT BUNDLE BRANCH BLOCK BORDERLINE ECG WHEN COMPARED WITH ECG OF 11-AUG-2010 09:29, LEFT ANTERIOR FASCICULAR BLOCK IS NO LONGER PRESENT T WAVE INVERSION NO LONGER EVIDENT IN INFERIOR LEADS T WAVE AMPLITUDE HAS DECREASED IN ANTERIOR LEADS Confirmed by BOB GALVAN, MIKE ([id number]) on 04/14/2019 7:06:57 AM Referred By: Confirmed By:MIKE ROJAS MD
[2019-04-14 07:50] LABS: BASO % 0.4 % (0-2.0); HEMATOCRIT 40.9 % (35.4-49); HEMOGLOBIN 13.8 GM/dL (11.7-16.9); LYMPH % 21.7 % (8-40); MCH 32.1 pg (25.7-33.7); MCHC 33.7 g/dl (32.0-35.9); MEAN CELL VOLUME 95.2 fl (80-96); MEAN PLT VOLUME 9.1 fl (7.5-11.1); MONO % 9.4 % (3.8-10.2); NEUT % 67.5 % (42.8-82.8); PLATELET COUNT 169 K/MM3 (134-434); RDW 13.6 % (11.9-15.9); WHITE BLOOD COUNT 9.2 K/mm3 (4.0-10.0)
[2019-04-14 08:20] LABS: BLOOD UREA NITROGEN 14.9 mg/dL (7-18); CALCIUM 8.4 mg/dL (8.5-10.1); CREATININE 0.8 mg/dL (0.55-1.3); MAGNESIUM 2.3 mg/dL (1.8-2.4); PHOSPHOROUS 3.2 mg/dL (2.5-4.9); POTASSIUM 4.2 mmol/L (3.5-5.1)
--- NOTE | 2019-04-14 08:45 | PN ---
Progress Note (short form) - Note Progress Note: Patient will be transferred to service Dr Sweet.
[2019-04-14] MEDS: PANTOPRAZOLE SODIUM 40 MG VIAL IVPUSH SCH ×3 (10:00→21:30)
--- NOTE | 2019-04-14 11:12 | CON.GI ---
Consult Consult Specialty:: Gastroenterology Reason for Consultation:: Abdominal pain - History of Present Illness History of Present Illness: 48yo male h/o HTN, CAD s/p PCI (2011), herniated disks presenting with abdominal pain and blood per rectum. Pt reports developing crampy upper abdominal pain 4-5 days ago worsening on Sunday, without radiation. Feeling well prior, had worsening pain on Sunday and took peptobismol with subsequent episode of nausea and vomiting. He also reports episode of dark stools in am, subsequently with bright blood per rectum later in the day prompting hospitalization. Denies diarrhea. At baseline reports regular daily bm. Denies prior GI bleeding. Denies fever/chills. No prior EGD or colonoscopy. Has been taking alleve for back pain when needed, otherwise has not been compliant with asa therapy states has not taken in a few weeks. Currently feeling better, abdominal pain improved, passing flatus, no bms or bleeding since Sunday. CT abd pelvis revealing proximal SB dilation with fecalization, with thickening at transverse colon, left colon and sigmoid. - History Source History Provided By: Patient - Past Medical History Cardio/Vascular: Yes: CAD, HTN, Hyperlipdemia, [place] (s/p LAD stents in 2011) Musculoskeletal: Yes: Chronic low back pain, Other (L spine herniated disks) - Past Surgical History Past Surgical History: Yes: None. No: Colonoscopy - Alcohol/Substance Use Hx Alcohol Use: Yes (social/occasional beer drinker ) History of Substance Use: reports: None - Smoking History Smoking history: Current every day smoker Have you smoked in the past 12 months: Yes Aproximately how many cigarettes per day: 20 If you are a former smoker, when did you quit?: (quit in past with patch) - Social History Usual Living Arrangement: With Spouse ADL: Independent Home Medications - Allergies Allergies/Adverse Reactions: Allergies Allergy/AdvReac Type Severity Reaction Status Date / Time erythromycin lactobionate Allergy Severe Swelling Verified 04/13/19 16:25 [From Erythrocin] Penicillins Allergy Severe Swelling Verified 04/13/19 16:28 erythromycin base Allergy Unknown Verified 04/13/19 08:48 - Home Medications Home Medications: Ambulatory Orders Aspirin [Aspirin EC] 81 mg PO DAILY 10/27/16 Atorvastatin Ca [Lipitor] 40 mg PO HS 10/27/16 Metoprolol Succinate [Toprol Xl -] 25 mg PO HS 10/27/16 Review of Systems - Review of Systems Constitutional: reports: No Symptoms Cardiovascular: reports: No Symptoms Respiratory: reports: No Symptoms Gastrointestinal: reports: Abdominal Pain Neurological: reports: No Symptoms Physical Exam-GI Vital Signs: Vital Signs Temperature 98.4 F 04/14/19 06:00 Pulse Rate 76 04/14/19 06:00 Respiratory Rate 18 04/14/19 06:00 Blood Pressure 116/79 04/14/19 06:00 O2 Sat by Pulse Oximetry (%) 99 04/13/19 23:14 Constitutional: Yes: Well Nourished, No Distress, Calm, Other (Sitting up, appears well/comfortable) Cardiovascular: Yes: WNL, Regular Rate and Rhythm Respiratory: Yes: WNL, Regular, CTA Bilaterally Gastrointestinal Inspection: Yes: WNL ...Palpate: Yes: Other (Abd soft, mildly tender in upper abdomen/epigastrium on palpation, non distended, no rebound, guarding or rigidity Rectal exam: empty vault, no blood, no obvious hemorrhoid) Labs: CBC, BMP 04/14/19 06:55 04/14/19 06:55 INR, PTT INR 1.00 (0.83-1.09) 04/13/19 10:20 Imaging - Results Cat Scan: Report Reviewed, Image Reviewed Problem List - Problems (1) Blood per rectum Assessment/Plan: 48yo male h/o HTN, CAD s/p PCI (2011) noncompliant with antiplatelet therapy, herniated disks presenting with abdominal pain and blood per rectum. CT abd/ pelvis revealing small bowel dilation with possible fecalization and thickening at transverse/left colon. Clinically improved, no further bleeding reported. Suspected ischemic etiology (mild) in setting of abdominal pain and blood per rectum (given distribution on CT) though also with possible ileus, less likely SBO. Low suspicion for infectious or inflammatory (IBD) or UGI bleeding source. No prior colonoscopy. Likely hemoconcentrated on admission, unknown baseline Hb. -Recommend continue conservative measures for now, IVF rehydration -PPI daily -Check abd xray today -Start trial of clear liquids as tolerated -If loose stool, check stool studies including C difficile, ova/parasites -Recommend cardiology evaluation in setting of prior PCI and noncompliance with antiplt therapy to ensure optimized prior to considering endoscopic evaluation -Would require colonoscopy once further improved Code(s): K62.5 - HEMORRHAGE OF ANUS AND RECTUM
--- NOTE | 2019-04-14 14:17 | PN ---
Physical Exam: SUBJECTIVE: Patient seen and examined at the bedside. Reported he was awoken from sleep with large amount of gas. Patient reports his abdominal pain is also improving now that he is passing gas. OBJECTIVE: Vital Signs Period Temp Pulse Resp BP Sys/Sifuentes Pulse Ox Last 24 Hr 98.1 F-98.7 F 60-93 16-18 94-130/55-79 97-99 GENERAL: The patient is awake, alert, and fully oriented, in no acute distress. HEAD: Normal with no signs of trauma. EYES: PERRL, extraocular movements intact, sclera anicteric, conjunctiva clear. No ptosis. ENT: Ears normal, nares patent, oropharynx clear without exudates, moist mucous membranes. NECK: Trachea midline, full range of motion, supple. LUNGS: Breath sounds equal, clear to auscultation bilaterally, no wheezes, no crackles, no accessory muscle use. HEART: Regular rate and rhythm, S1, S2 without murmur, rub or gallop. ABDOMEN: Soft, mildly distended, diffusely tender to palpation, no guarding, no rebound, EXTREMITIES: 2+ pulses, warm, well-perfused, no edema. NEUROLOGICAL: Cranial nerves II through XII grossly intact. Normal speech, gait not observed. PSYCH: Normal mood, normal affect. SKIN: Warm, dry, normal turgor, no rashes or lesions noted Laboratory Results - last 24 hr 04/13/19 04/13/19 04/13/19 14:14 14:30 17:58 WBC 10.9 H RBC 5.02 Hgb 15.9 Hct 48.1 MCV 95.7 MCH 31.7 MCHC 33.2 RDW 13.9 Plt Count 191 MPV 9.0 Absolute Neuts (auto) Neutrophils % Lymphocytes % Monocytes % Eosinophils % Basophils % Nucleated RBC % Sodium Potassium Chloride Carbon Dioxide Anion Gap BUN Creatinine Est GFR (CKD-EPI)AfAm Est GFR (CKD-EPI)NonAf Random Glucose Lactic Acid 1.2 Calcium Phosphorus Magnesium Blood Type A POSITIVE Antibody Screen Positive Prewarmed Antibody Srcn Negative Antibody Identification Cold agg Antigen Identification No Result Required. 04/14/19 04/14/19 06:55 06:55 WBC 9.2 RBC 4.30 Hgb 13.8 Hct 40.9 MCV 95.2 MCH 32.1 MCHC 33.7 RDW 13.6 Plt Count 169 MPV 9.1 Absolute Neuts (auto) 6.2 Neutrophils % 67.5 D Lymphocytes % 21.7 D Monocytes % 9.4 D Eosinophils % 1.0 D Basophils % 0.4 Nucleated RBC % 0 Sodium 140 Potassium 4.2 Chloride 108 H Carbon Dioxide 24 Anion Gap 8 BUN 14.9 Creatinine 0.8 Est GFR (CKD-EPI)AfAm 120.72 Est GFR (CKD-EPI)NonAf 104.16 Random Glucose 83 Lactic Acid Calcium 8.4 L Phosphorus 3.2 Magnesium 2.3 Blood Type Antibody Screen Prewarmed Antibody Srcn Antibody Identification Antigen Identification Active Medications Generic Name Dose Route Start Last Admin Trade Name Freq PRN Reason Stop Dose Admin Acetaminophen 1,000 mg 04/13/19 16:01 04/14/19 05:54 Ofirmev Injection - IVPB 1,000 mg Q6H PRN Administration PAIN LEVEL 1-5 Sodium Chloride 1,000 mls @ 125 mls/hr 04/13/19 13:45 04/14/19 05:58 Normal Saline - IV 125 mls/hr ASDIR INOCENCIA Administration Morphine Sulfate 2 mg 04/13/19 15:58 04/13/19 18:43 Morphine Sulfate IVPUSH 2 mg Q4H PRN Administration PAIN LEVEL 6-10 Pantoprazole Sodium 40 mg 04/13/19 16:53 04/14/19 10:00 Protonix Iv IVPUSH 40 mg BID INOCENCIA Administration ASSESSMENT/PLAN: 48 y/o man with h/o HTN, CAD s/p ND, s/p stents in 2011, lumbar herniated disks who presented with abd pain x 1 day and rectal bleed x 3 days. He was found to have SBO and rectal bleed. # SBO vs ileus - GI and surgery following, appreciate recommendations - continue conservative measures for now, IVF rehydration - advance diet as tolerated, currently on clears - f/u read of KUB - pain meds prn - would use Tylenol first line IV # Rectal bleed ( melena and BRBPR)- patient no longer reporting bright red blood per rectum - holding aspirin for possible colonoscopy tomorrow - holding BB to avoid hypotension in setting of possible ischemic colitis # History of CAD - asymptomatic - resume statin #PPx - cont PPI - SCDS . Visit type - Emergency Visit Emergency Visit: Yes ED Registration Date: 04/13/19 Care time: The patient presented to the Emergency Department on the above date and was hospitalized for further evaluation of their emergent condition. - New Patient This patient is new to me today: Yes Date on this admission: 04/14/19 - Critical Care Critical Care patient: No - Discharge Referral Referred to [facility] Med [facility].C[facility] No ATTENDING PHYSICIAN STATEMENT I saw and evaluated the patient. I reviewed the resident's note and discussed the case with the resident. I agree with the resident's findings and plan as documented. SUBJECTIVE: OBJECTIVE: ASSESSMENT AND PLAN:
--- NOTE | 2019-04-14 16:26 | PN ---
Progress Note, Physician History of Present Illness: Pt with melena and BRBPR, with abdominal pain, N/V on admission. CT suggested colitis (ischemic? infectious?) from midtransverse through sigmoid, with SBO picture and fecalized mid SB loop. Seen by GI earlier; no previous scopes. He reports feeling better, has been ambulating some. Urinating, no BM yet, but passing gas. Pain is better - using Tylenol instead of morphine. Tenderness is less. Abdomen a bit less distended. Some nausea when he had the IV Protonix, but no vomiting. Appears comfortable. Seen and examined in bed with present. AXR was done today, report pending. - Current Medication List Current Medications: Active Medications Acetaminophen (Ofirmev Injection -) 1,000 mg IVPB Q6H PRN PRN Reason: PAIN LEVEL 1-5 Last Admin: 04/14/19 05:54 Dose: 1,000 mg Sodium Chloride (Normal Saline -) 1,000 mls @ 125 mls/hr IV ASDIR [facility] Last Admin: 04/14/19 05:58 Dose: 125 mls/hr Morphine Sulfate (Morphine Sulfate) 2 mg IVPUSH Q4H PRN PRN Reason: PAIN LEVEL 6-10 Last Admin: 04/13/19 18:43 Dose: 2 mg Pantoprazole Sodium (Protonix Iv) 40 mg IVPUSH BID [facility] Last Admin: 04/14/19 10:00 Dose: 40 mg - Objective Vital Signs: Vital Signs Temperature 98.4 F 04/14/19 14:47 Pulse Rate 64 04/14/19 14:47 Respiratory Rate 18 04/14/19 14:47 Blood Pressure 114/69 04/14/19 14:47 O2 Sat by Pulse Oximetry (%) 99 04/14/19 09:00 suspect BP is lower than his usual baseline, given h/o HTN and noncompliance with low-dose Toprol Constitutional: Yes: Well Nourished, No Distress, Calm Eyes: Yes: Conjunctiva Clear, EOM Intact HENT: Yes: Atraumatic, Normocephalic Gastrointestinal: Yes: Normal Bowel Sounds (less in upper quadrants), Soft, Distention (less - protuberant with less tympany), Tenderness (mild in LLQ, suprapubic; less across upper abdomen, not in RLQ; no rebound or guarding) Extremities: No: Cool, Cyanosis Integumentary: No: Jaundice, Rash Neurological: Yes: Alert, Oriented Labs: CBC, BMP 04/14/19 06:55 04/14/19 06:55 CMP Sodium 140 mmol/L (136-145) 04/14/19 06:55 Potassium 4.2 mmol/L (3.5-5.1) 04/14/19 06:55 Chloride 108 mmol/L (98-107) H 04/14/19 06:55 Carbon Dioxide 24 mmol/L (21-32) 04/14/19 06:55 Anion Gap 8 MMOL/L (8-16) 04/14/19 06:55 BUN 14.9 mg/dL (7-18) 04/14/19 06:55 Creatinine 0.8 mg/dL (0.55-1.3) 04/14/19 06:55 Est GFR (CKD-EPI)AfAm 120.72 04/14/19 06:55 Est GFR (CKD-EPI)NonAf 104.16 04/14/19 06:55 Random Glucose 83 mg/dL (74-106) 04/14/19 06:55 Lactic Acid 1.2 mmol/L (0.4-2.0) 04/13/19 14:14 Calcium 8.4 mg/dL (8.5-10.1) L 04/14/19 06:55 Phosphorus 3.2 mg/dL (2.5-4.9) 04/14/19 06:55 Magnesium 2.3 mg/dL (1.8-2.4) 04/14/19 06:55 Total Bilirubin 0.5 mg/dL (0.2-1) 04/13/19 10:20 AST 11 U/L (15-37) L 04/13/19 10:20 ALT 28 U/L (13-61) 04/13/19 10:20 Alkaline Phosphatase 70 U/L (45-117) 04/13/19 10:20 Creatine Kinase 53 U/L (26-308) 04/13/19 10:20 Troponin I < 0.02 ng/ml (0.00-0.05) 04/13/19 10:20 Total Protein 7.2 g/dl (6.4-8.2) 04/13/19 10:20 Albumin 4.0 g/dl (3.4-5.0) 04/13/19 10:20 Lipase 142 U/L (73-393) 04/13/19 10:20 Hb hydrated down nicely wbc normal lytes ok - ....Imaging X-ray: Image Reviewed (AXR with stool throughout colon, more air in left colon, air bubble in rectum, still with few gas-filled SB loops in central abdomen - report pending) Problem List - Problems (1) SBO (small bowel obstruction) Code(s): K56.609 - UNSP INTESTNL OBST, UNSP TO PARTIAL VERSUS COMPLETE OBST (2) Melena Code(s): K92.1 - MELENA (3) Blood per rectum Code(s): K62.5 - HEMORRHAGE OF ANUS AND RECTUM (4) Colitis Code(s): K52.9 - NONINFECTIVE GASTROENTERITIS AND COLITIS, UNSPECIFIED (5) Upper abdominal pain Code(s): R10.10 - UPPER ABDOMINAL PAIN, UNSPECIFIED (6) Nausea and vomiting Code(s): R11.2 - NAUSEA WITH VOMITING, UNSPECIFIED Qualifiers: Vomiting type: unspecified Vomiting Intractability: non-intractable Qualified Code(s): R11.2 - Nausea with vomiting, unspecified (7) Dehydration Code(s): E86.0 - DEHYDRATION (8) Hypertension Code(s): I10 - ESSENTIAL (PRIMARY) HYPERTENSION Qualifiers: Hypertension type: essential hypertension Qualified Code(s): I10 - Essential (primary) hypertension (9) Hyperlipidemia Code(s): E78.5 - HYPERLIPIDEMIA, UNSPECIFIED Qualifiers: Hyperlipidemia type: unspecified Qualified Code(s): E78.5 - Hyperlipidemia , unspecified (10) CAD (coronary artery disease), [place] coronary artery Code(s): I25.10 - ATHSCL HEART DISEASE OF [place] CORONARY ARTERY W/O ANG PCTRS Qualifiers: [place] vs. transplanted heart: [place] heart Associated angina: without angina Qualified Code(s): I25.10 - Atherosclerotic heart disease of [place] coronary artery without angina pectoris (11) Tobacco dependence due to cigarettes Code(s): F17.210 - NICOTINE DEPENDENCE, CIGARETTES, UNCOMPLICATED Assessment/Plan Patient with GI bleed - melena and BRBPR seen by GI - agree with ischemic as most likely etiology could be related to relative hypotension better hydrated today per pt and - he drinks about 9 cups of coffee daily (caffeinated), and not much water doubt true SBO may be more of an ileus? pt passing flatus, more gas in left colon and distal on AXR monitor stool output trend labs continue to HOLD aspirin for now consider cardiology to see GI/DVT prophylaxis pain meds prn - would use Tylenol first line IV f/u AXR report would be ok with trying clears if ok with GI avoid carbonated drinks and caffeine for now agree with GI - will need colonoscopy at some point will follow with you discussed with Dr. Cole
--- NOTE | 2019-04-14 17:07 | PN ---
Teaching Attending Note Name of Resident: Dariusz Edwards ATTENDING PHYSICIAN STATEMENT I saw and evaluated the patient. I reviewed the resident's note and discussed the case with the resident. I agree with the resident's findings and plan as documented. SUBJECTIVE: No fever or chills. NO Bills. Feels much better. cont to have flatus since yesterday. abd pain is better OBJECTIVE: NAD CV: RRR, no MRG Lungs: CTAB Abd: soft, less distended compared to yesterday. tympanic . tender in upper abdomen withno rebound tenderness or guarding Ext : No edema or erythema ASSESSMENT AND PLAN: 48 y/o man with h/o HTN, CAD s/p [place], s/p stents in 2012, lumbar herniated disks who presented with abd pain x 1 day and rectal bleed x 3 days. He was found to have SBO and rectal bleed. 1- SBO vs ileus 2- Rectal bleed ( melena and BRBPR): possible ischemic colitis in setting of volume depletion. other infectious/inflammatory causes can't be r/o. can't r/o upper source ( less likely) 3- h/o CAD . asymptomatic at this point Plan : - appreciate Dr. Kenny and Dr. Torres help - clear diet - monitor - KUB with no dialtion in bowel loops. read to follow - cont to hold asa for colonoscopy - cont to hold BB to avoid hypotension in setting of possible ischemic colitis. - resume statin - cont PPI - Pre-op risk stratification as in my H&P. Since No urgent surgery is to be done, I will order an echo before proceeding with colonoscopy. - SCDS .
--- NOTE | 2019-04-14 19:28 | PN ---
Progress Note (short form) - Note Progress Note: Primary care physician note. GI physician recommended cardiology evaluation as a preparation for possible upcoming endoscopy. Please consult a [facility] bow stapler for this exam as he has been followed by them previously.
[2019-04-14] MEDS: ATORVASTATIN CA 40 MG TABLET (FP) PO SCH (21:26)
[2019-04-15 07:49] LABS: BASO % 0.4 % (0-2.0); EOS % 1.9 % (0-4.5); HEMATOCRIT 43.9 % (35.4-49); HEMOGLOBIN 14.9 GM/dL (11.7-16.9); LYMPH % 22.6 % (8-40); MCH 32.2 pg (25.7-33.7); MCHC 33.9 g/dl (32.0-35.9); MEAN CELL VOLUME 94.8 fl (80-96); MEAN PLT VOLUME 9.1 fl (7.5-11.1); MONO % 9.9 % (3.8-10.2); NEUT % 65.2 % (42.8-82.8); PLATELET COUNT 169 K/MM3 (134-434); RBC 4.63 M/mm3 (4.00-5.60); RDW 13.7 % (11.9-15.9); WHITE BLOOD COUNT 6.6 K/mm3 (4.0-10.0)
[2019-04-15 08:04] LABS: BLOOD UREA NITROGEN 13.3 mg/dL (7-18); CREATININE 0.8 mg/dL (0.55-1.3)
[2019-04-15] MEDS: PANTOPRAZOLE SODIUM 40 MG VIAL IVPUSH SCH ×2 (09:23→21:37)
--- NOTE | 2019-04-15 10:42 | ECHO ---
Version: 1 Name: LENIN ENRIQUE Exam: Adult Echocardiogram Study Date: 04/15/2019, 9:46 AM Age: 48 Years MMode/2D Measurements & Calculations IVSd: 1.05 cm LVIDs: 2.35 cm LVIDd: 3.6 cm LVPWd: 1.05 cm LAV (MOD-bp): 39.3 ml LVOT diam: 1.96 cm Ao root diam: 2.20 cm LA dimension: 3.0 cm Doppler Measurements & Calculations MV E max nikia: 119.0 cm/sec MV A max nikia: 78.6 cm/sec MV E/A: 1.51 MR max P.5 mmHg Ao max P.2 mmHg Ao V2 max: 124.9 cm/sec Left Ventricle The left ventricular size, thickness and function are normal. Ejection Fraction = 65. Right Ventricle The right ventricle is normal in size and function. Atria Normal left and right atrial size and function. Mitral Valve The mitral valve is normal. There is mild mitral regurgitation. Tricuspid Valve The tricuspid valve is normal in structure and function. There is trace tricuspid regurgitation. Aortic Valve The aortic valve is normal in structure and function. Trace aortic regurgitation. Pulmonic Valve The pulmonic valve leaflets are thin and pliable; valve motion is normal. Great Vessels The aortic root is normal size. Normal aortic arch, descending and ascending aorta. Pericardium/Pleura There is no pericardial effusion. Summary Statements The left ventricular size, thickness and function are normal The right ventricle is normal in size and function. Normal left and right atrial size and function. The mitral valve is normal. There is mild mitral regurgitation. The tricuspid valve is normal in structure and function. There is trace tricuspid regurgitation. The aortic valve is normal in structure and function. Trace aortic regurgitation. The pulmonic valve leaflets are thin and pliable; valve motion is normal. The aortic root is normal size. Normal aortic arch, descending and ascending aorta There is no pericardial effusion. Mumtaz Allen 04/15/2019, 9:41 AM Ordering Physician: Russell Cole Performed By: Dinah Sierra
--- NOTE | 2019-04-15 13:15 | PN ---
Progress Note, Physician History of Present Illness: Pt with melena and BRBPR, with abdominal pain, N/V on admission. CT suggested colitis (ischemic? infectious?) from midtransverse through sigmoid, with SBO picture and fecalized mid SB loop. Seen by GI; no previous scopes. He reports feeling better, has been ambulating, urinating, passing gas and had BM earlier, mostly brown, dark. Pain is better. Tolerating clears. Seen and examined sitting up in chair, had lunch. Per pt, may have colonoscopy tomorrow. - Current Medication List Current Medications: Active Medications Acetaminophen (Ofirmev Injection -) 1,000 mg IVPB Q6H PRN PRN Reason: PAIN LEVEL 1-5 Last Admin: 04/14/19 05:54 Dose: 1,000 mg Atorvastatin Calcium (Lipitor -) 40 mg PO HS [facility] Last Admin: 04/14/19 21:26 Dose: 40 mg Sodium Chloride (Normal Saline -) 1,000 mls @ 125 mls/hr IV ASDIR INOCENCIA Last Admin: 04/14/19 21:25 Dose: 125 mls/hr Morphine Sulfate (Morphine Sulfate) 2 mg IVPUSH Q4H PRN PRN Reason: PAIN LEVEL 6-10 Last Admin: 04/13/19 18:43 Dose: 2 mg Pantoprazole Sodium (Protonix Iv) 40 mg IVPUSH BID [facility] Last Admin: 04/15/19 09:23 Dose: Not Given - Objective Vital Signs: Vital Signs Temperature 98.4 F 04/15/19 09:57 Pulse Rate 61 04/15/19 09:57 Respiratory Rate 20 04/15/19 09:57 Blood Pressure 119/70 04/15/19 09:57 O2 Sat by Pulse Oximetry (%) 97 04/15/19 09:00 Constitutional: Yes: Well Nourished, No Distress, Calm Eyes: Yes: Conjunctiva Clear, EOM Intact HENT: Yes: Atraumatic, Normocephalic Gastrointestinal: Yes: Soft, Distention (some), Tenderness, Epigastrium (mild only). No: Tenderness ...Rectal Exam: Yes: Deferred Extremities: No: Cool, Cyanosis Integumentary: No: Jaundice, Rash Neurological: Yes: Alert, Oriented Labs: CBC, BMP 04/15/19 06:45 04/15/19 06:00 CMP Sodium 140 mmol/L (136-145) 04/15/19 06:00 Potassium 4.0 mmol/L (3.5-5.1) 04/15/19 06:00 Chloride 107 mmol/L (98-107) 04/15/19 06:00 Carbon Dioxide 27 mmol/L (21-32) 04/15/19 06:00 Anion Gap 6 MMOL/L (8-16) L 04/15/19 06:00 BUN 13.3 mg/dL (7-18) 04/15/19 06:00 Creatinine 0.8 mg/dL (0.55-1.3) 04/15/19 06:00 Est GFR (CKD-EPI)AfAm 120.72 04/15/19 06:00 Est GFR (CKD-EPI)NonAf 104.16 04/15/19 06:00 Random Glucose 84 mg/dL (74-106) 04/15/19 06:00 Lactic Acid 1.2 mmol/L (0.4-2.0) 04/13/19 14:14 Calcium 9.0 mg/dL (8.5-10.1) 04/15/19 06:00 Phosphorus 3.2 mg/dL (2.5-4.9) 04/14/19 06:55 Magnesium 2.3 mg/dL (1.8-2.4) 04/14/19 06:55 Total Bilirubin 0.5 mg/dL (0.2-1) 04/13/19 10:20 AST 11 U/L (15-37) L 04/13/19 10:20 ALT 28 U/L (13-61) 04/13/19 10:20 Alkaline Phosphatase 70 U/L (45-117) 04/13/19 10:20 Creatine Kinase 53 U/L (26-308) 04/13/19 10:20 Troponin I < 0.02 ng/ml (0.00-0.05) 04/13/19 10:20 Total Protein 7.2 g/dl (6.4-8.2) 04/13/19 10:20 Albumin 4.0 g/dl (3.4-5.0) 04/13/19 10:20 Lipase 142 U/L (73-393) 04/13/19 10:20 Problem List - Problems (1) SBO (small bowel obstruction) Code(s): K56.609 - UNSP INTESTNL OBST, UNSP TO PARTIAL VERSUS COMPLETE OBST (2) Melena Code(s): K92.1 - MELENA (3) Blood per rectum Code(s): K62.5 - HEMORRHAGE OF ANUS AND RECTUM (4) Colitis Code(s): K52.9 - NONINFECTIVE GASTROENTERITIS AND COLITIS, UNSPECIFIED (5) Upper abdominal pain Code(s): R10.10 - UPPER ABDOMINAL PAIN, UNSPECIFIED (6) Nausea and vomiting Code(s): R11.2 - NAUSEA WITH VOMITING, UNSPECIFIED Qualifiers: Vomiting type: unspecified Vomiting Intractability: non-intractable Qualified Code(s): R11.2 - Nausea with vomiting, unspecified (7) Dehydration Code(s): E86.0 - DEHYDRATION (8) Hypertension Code(s): I10 - ESSENTIAL (PRIMARY) HYPERTENSION Qualifiers: Hypertension type: essential hypertension Qualified Code(s): I10 - Essential (primary) hypertension (9) Hyperlipidemia Code(s): E78.5 - HYPERLIPIDEMIA, UNSPECIFIED Qualifiers: Hyperlipidemia type: unspecified Qualified Code(s): E78.5 - Hyperlipidemia , unspecified (10) CAD (coronary artery disease), [place] coronary artery Code(s): I25.10 - ATHSCL HEART DISEASE OF [place] CORONARY ARTERY W/O ANG PCTRS Qualifiers: [place] vs. transplanted heart: [place] heart Associated angina: without angina Qualified Code(s): I25.10 - Atherosclerotic heart disease of [place] coronary artery without angina pectoris (11) Tobacco dependence due to cigarettes Code(s): F17.210 - NICOTINE DEPENDENCE, CIGARETTES, UNCOMPLICATED Assessment/Plan Patient with GI bleed - melena and BRBPR seen by GI - agree with ischemic as most likely etiology could be related to relative hypotension better hydrated per pt and - he drinks about 9 cups of coffee daily (caffeinated), and not much water no evidence of obstruction currently + BM, tolerating clears continue to HOLD aspirin for now cardiology to see GI/DVT prophylaxis pain meds prn - would use Tylenol first line IV colonoscopy per GI no indication for surgical intervention at this time will sign off - call with questions discussed with Dr. Cole
--- NOTE | 2019-04-15 13:17 | PN.GI ---
GI Progress Note Subjective: No acute events Sitting up watching videos on his laptop Had a dark brown BM today without overt rectal bleeding Abdominal pain improved. - Objective Vital Signs: Vital Signs Temperature 98.4 F 04/15/19 09:57 Pulse Rate 61 04/15/19 09:57 Respiratory Rate 20 04/15/19 09:57 Blood Pressure 119/70 04/15/19 09:57 O2 Sat by Pulse Oximetry (%) 97 04/15/19 09:00 Constitutional: Calm Eyes: No: Sclera Icterus Cardiovascular: Yes: Regular Rate and Rhythm Respiratory: Yes: CTA Bilaterally Gastrointestinal Inspection: No: Distention ...Auscultate: Yes: Normoactive Bowel Sounds ...Palpate: Yes: Soft, Tenderness (Mild TTP Left abdomen). No: Guarding, Tenderness, Rebound ...Percussion: No: Tympanitic Edema: No (No LE edema) Neurological: Yes: Alert Labs: CBC, BMP 04/15/19 06:45 04/15/19 06:00 INR, PTT INR 1.00 (0.83-1.09) 04/13/19 10:20 - ....Imaging Cat Scan: Report Reviewed, Image Reviewed Problem List - Problems (1) Abnormal CT of the abdomen Assessment/Plan: ? Ischemic colitis with associated ileus Clinically improved and tolerating clears Discussed colonoscopy with Mr. Jama for further evaluation of abnormal CT scan findings. Discussed potential risks of the procedure like but not limited to bleeding, perforation requiring surgery to repair, infection, sedation medication effects all of which could be potentially life threatening. He has agreed to the procedure. Golytely prep NPO after midnight except meds AM labs Code(s): R93.5 - ABN FINDINGS ON DX IMAGING OF ABD REGIONS, INC RETROPERITON
--- NOTE | 2019-04-15 15:20 | PN ---
Physical Exam: SUBJECTIVE: Patient seen and examined at the bedside. Patient reports he had a BM yesterday and it was black. OBJECTIVE: Vital Signs Period Temp Pulse Resp BP Sys/Sifuentes Pulse Ox Last 24 Hr 98.4 F-98.7 F 61-75 20-20 118-125/68-74 97-99 GENERAL: The patient is awake, alert, and fully oriented, in no acute distress. HEAD: Normal with no signs of trauma. EYES: PERRL, extraocular movements intact, sclera anicteric, conjunctiva clear. No ptosis. ENT: Ears normal, nares patent, oropharynx clear without exudates, moist mucous membranes. NECK: Trachea midline, full range of motion, supple. LUNGS: Breath sounds equal, clear to auscultation bilaterally, no wheezes, no crackles, no accessory muscle use. HEART: Regular rate and rhythm, S1, S2 without murmur, rub or gallop. ABDOMEN: Soft, mildly distended, diffusely tender to palpation, no guarding, no rebound, EXTREMITIES: 2+ pulses, warm, well-perfused, no edema. NEUROLOGICAL: Cranial nerves II through XII grossly intact. Normal speech, gait not observed. PSYCH: Normal mood, normal affect. SKIN: Warm, dry, normal turgor, no rashes or lesions noted Laboratory Results - last 24 hr 04/15/19 04/15/19 06:00 06:45 WBC 6.6 RBC 4.63 Hgb 14.9 Hct 43.9 MCV 94.8 MCH 32.2 MCHC 33.9 RDW 13.7 Plt Count 169 MPV 9.1 Absolute Neuts (auto) 4.3 Neutrophils % 65.2 Lymphocytes % 22.6 Monocytes % 9.9 Eosinophils % 1.9 D Basophils % 0.4 Nucleated RBC % 0 Sodium 140 Potassium 4.0 Chloride 107 Carbon Dioxide 27 Anion Gap 6 L BUN 13.3 Creatinine 0.8 Est GFR (CKD-EPI)AfAm 120.72 Est GFR (CKD-EPI)NonAf 104.16 Random Glucose 84 Calcium 9.0 Active Medications Generic Name Dose Route Start Last Admin Trade Name Freq PRN Reason Stop Dose Admin Acetaminophen 1,000 mg 04/13/19 16:01 04/14/19 05:54 Ofirmev Injection - IVPB 1,000 mg Q6H PRN Administration PAIN LEVEL 1-5 Atorvastatin Calcium 40 mg 04/14/19 22:00 04/14/19 21:26 Lipitor - PO 40 mg HS INOCENCIA Administration Sodium Chloride 1,000 mls @ 125 mls/hr 04/13/19 13:45 04/14/19 21:25 Normal Saline - IV 125 mls/hr ASDIR INOCENCIA Administration Morphine Sulfate 2 mg 04/13/19 15:58 04/13/19 18:43 Morphine Sulfate IVPUSH 2 mg Q4H PRN Administration PAIN LEVEL 6-10 Pantoprazole Sodium 40 mg 04/13/19 16:53 04/15/19 09:23 Protonix Iv IVPUSH Not Given BID INOCENCIA Polyethylene Glycol/Electrolytes 4,000 ml 04/15/19 18:00 Golytely Solution - PO 04/15/19 18:01 ONCE ONE Sodium Phosphate 133 ml 04/16/19 08:00 Fleet Adult Rectal Enema - [place] 04/16/19 08:01 ONCE ONE ASSESSMENT/PLAN: 48 y/o man with h/o HTN, CAD s/p [place], s/p stents in 2011, lumbar herniated disks who presented with abd pain x 1 day and rectal bleed x 3 days. He was found to have possible SBO and rectal bleed. # SBO vs ileus - GI appreciate recommendations - continue conservative measures for now, IVF rehydration - tolerating clear diet - KUB w/o evidence of SBO. some evidence of centrally dilated loops of bowel , no free air. - pain meds prn - would use Tylenol first line IV - Surgery signing off as there is no intervention planned at this time - Dr. Sweet evaluted patient, will perform colonoscopy tomorrow - julio prep - NPO after midnight - Dr. Anthony evaluated patient for cardiac clearance for colonoscopy. Per his note "There are no cardiac contraindications to colonoscopy: BP is well controlled and he is in NSR. He has no anginal sx and is euvolemic w/ normal LVEF and no . He would be considered low to moderate risk for a low risk procedure." # Rectal bleed ( melena and BRBPR)- patient no longer reporting bright red blood per rectum - holding aspirin for possible colonoscopy tomorrow - holding BB to avoid hypotension in setting of possible ischemic colitis # History of CAD - asymptomatic - resume statin - Echo- normal structure and function, no pericardial effusion - Target/ optimal BP is < 140/90 - Resume ASA 81mg daily after colonoscopy #PPx - cont PPI - SCDS . Visit type - Emergency Visit Emergency Visit: Yes ED Registration Date: 04/13/19 Care time: The patient presented to the Emergency Department on the above date and was hospitalized for further evaluation of their emergent condition. - New Patient This patient is new to me today: No - Critical Care Critical Care patient: No - Discharge Referral Referred to [facility] No ATTENDING PHYSICIAN STATEMENT I saw and evaluated the patient. I reviewed the resident's note and discussed the case with the resident. I agree with the resident's findings and plan as documented. SUBJECTIVE: OBJECTIVE: ASSESSMENT AND PLAN:
--- NOTE | 2019-04-15 15:43 | CON.CARD ---
Consult Consult Specialty:: Cardiology Referred by:: Dr. Haddad Reason for Consultation:: Evaluation prior to C-scope - History of Present Illness Chief Complaint: Abdominal pain History of Present Illness: 48M smoker w/ CAD s/p [place] and PCI 2011. Admittedly noncompliant w/ ASA (last took it 2 weeks ago) admitted with several days progressively worsening abdominal pain, distension, nausea and episode BRBPR. CT A/P showed thickened colon suggestive colitis and obstruction vs ileus. Seen by GI, planned for colonoscopy. Risk factors: known CAD, smoking, HTN, HLD ROS: Denies CP w/ exertion, CHAN, palps, syncope, edema, PND, orthopnea. ECG: NSR 72bpm, inc RBBB echo done today normal EF, no sig valve dz - History Source History Provided By: Patient Limitations to Obtaining History: No Limitations - Past Medical History Cardio/Vascular: Yes: CAD, HTN, Hyperlipdemia, IL (s/p LAD stents in 2011) Pulmonary: No: Asthma, Bronchitis, Cancer, COPD, O2 Dependent, Pneumonia, Previously Intubated, Pulmonary Embolus, Pulmonary Fibrosis, Sleep Apnea, Other Gastrointestinal: No: Ascites, Cancer, Constipation, Crohn's Disease, Diverticulitis, Diverticulosis, Esophageal Varices, Gastritis, GERD, GI Bleed, Hemorrhoids, Hiatal Hernia, Inflamatory Bowel Disease, Irritable Bowel Disease, Pancreatitis, Peptic Ulcer Disease, Ulcerative Colitis, Other Hepatobiliary: No: Cirrhosis, Cholelithiasis, Cholecystitis, Choledocholithiasis , Hepatitis A, Hepatitis B, Hepatitis C, Other Renal/: No: Renal Failure, Renal Inusuff, BPH, Cancer, Hematuria, Hemodialysis , Neurogenic Bladder, Renal Calculi, UTI, Other Heme/Onc: No: Anemia, B12 Deficiency, Bleeding Disorder, Cancer, Current Chemotherapy, Current Radiation Therapy, Hemochromatosis, Hypercoaguable State, Myeloproliferative Synd, Sickle Cell Disease, Sickle Cell Trait, Thrombocytopenia, Other Musculoskeletal: Yes: Chronic low back pain, Other (L spine herniated disks) - Past Surgical History Past Surgical History: Yes: None. No: Colonoscopy - Alcohol/Substance Use Hx Alcohol Use: Yes (social/occasional beer drinker ) History of Substance Use: reports: None - Smoking History Smoking history: Current every day smoker Have you smoked in the past 12 months: Yes Aproximately how many cigarettes per day: 20 If you are a former smoker, when did you quit?: (quit in past with patch) - Social History Usual Living Arrangement: With Spouse ADL: Independent History of Recent Travel: No Home Medications - Allergies Allergies/Adverse Reactions: Allergies Allergy/AdvReac Type Severity Reaction Status Date / Time erythromycin lactobionate Allergy Severe Swelling Verified 04/13/19 16:25 [From Erythrocin] Penicillins Allergy Severe Swelling Verified 04/13/19 16:28 erythromycin base Allergy Unknown Verified 04/13/19 08:48 - Home Medications Home Medications: Ambulatory Orders Aspirin [Aspirin EC] 81 mg PO DAILY 10/27/16 Atorvastatin Ca [Lipitor] 40 mg PO HS 10/27/16 Metoprolol Succinate [Toprol Xl -] 25 mg PO HS 10/27/16 Family Medical History Family History: Unremarkable Review of Systems - Review of Systems Constitutional: reports: No Symptoms Eyes: reports: No Symptoms HENT: reports: No Symptoms Neck: reports: No Symptoms Cardiovascular: reports: No Symptoms Respiratory: reports: No Symptoms Gastrointestinal: reports: No Symptoms Genitourinary: reports: No Symptoms Breasts: reports: No Symptoms Reported Musculoskeletal: reports: No Symptoms Integumentary: reports: No Symptoms Neurological: reports: No Symptoms Endocrine: reports: No Symptoms Hematology/Lymphatic: reports: No Symptoms Psychiatric: reports: No Symptoms - Risk Factors Known Risk Factors: Yes: Hypercholesterolemia, Hypertension, Smoking, Other ( Known CAD) Vital Signs: Vital Signs Temperature 98.6 F 04/15/19 13:44 Pulse Rate 61 04/15/19 13:44 Respiratory Rate 20 04/15/19 13:44 Blood Pressure 118/73 04/15/19 13:44 O2 Sat by Pulse Oximetry (%) 97 04/15/19 09:00 Constitutional: Yes: No Distress, Calm Eyes: Yes: Conjunctiva Clear, EOM Intact Respiratory: Yes: CTA Bilaterally (no wheezing or rales) Gastrointestinal: Yes: Soft (NT, no aortic enlargement) Cardiovascular: Yes: Regular Rate and Rhythm JVD: No Carotid Bruit: No PMI: Non-Displaced Heart Sounds: Yes: S1, S2 (rrr, no m/r/g) Edema: No Neurological: Yes: Alert, Oriented ...Motor Strength: WNL Psychiatric: Yes: WNL, Alert, Oriented - Other Data Labs, Other Data: CBC, BMP 04/15/19 06:45 04/15/19 06:00 INR, PTT INR 1.00 (0.83-1.09) 04/13/19 10:20 Echo: Report Reviewed Prior Cardiac Procedures: PTCA with Stent Ejection Fraction %: LVEF > or = 40 % Imaging - Results Cat Scan: Report Reviewed EKG: Image Reviewed Assessment/Plan IMP: Colitis, etiology unclear CAD s/p remote [place] and PCI (2011) Smoker/HTN/HLD REC: There are no cardiac contraindications to colonoscopy: BP is well controlled and he is in NSR. He has no anginal sx and is euvolemic w/ normal LVEF and no . He would be considered low to moderate risk for a low risk procedure. 1. Resume ASA 81mg daily after procedure and emphasize importance of adherence to cardiac med regimen. 2. Continue high intensity statin for LDL goal 70mg/dl 3. Target/ optimal BP is < 140/90 4. Smoking cessation strongly advised. Will follow, please call if questions. Thank you
[2019-04-15] MEDS ORDERED: PT OWN MED DRAWER 7, Y5N ONE (16:00)
[2019-04-15] MEDS: SODIUM CHLORIDE 1,000 ML IV SCH (17:03)
[2019-04-15] MEDS ORDERED: PEG 3350/NA SULF BICARB CL/KCL 4000 ML SOLN.RECON PO ONE (18:00)
--- NOTE | 2019-04-15 18:50 | PN ---
Teaching Attending Note Name of Resident: Rukhsana Veronica ATTENDING PHYSICIAN STATEMENT I saw and evaluated the patient. I reviewed the resident's note and discussed the case with the resident. I agree with the resident's findings and plan as documented. SUBJECTIVE: no pain, no fever or chills. had a green to black BM this am OBJECTIVE: NAD CV: RRR, no MRG Lungs: CTAB Abd: soft, lND. tympanic . NT, NL BS Ext : No edema or erythema ASSESSMENT AND PLAN: 48 y/o man with h/o HTN, CAD s/p [place], s/p stents in 2011, lumbar herniated disks who presented with abd pain x 1 day and rectal bleed x 3 days. He was found to have SBO and rectal bleed. 1- SBO vs ileus 2- Rectal bleed: possible ischemic colitis in setting of volume depletion. other infectious/inflammatory causes can't be r/o. can't r/o upper source ( less likely) 3- h/o CAD . asymptomatic at this point Plan : - colonoscopy tomorrow - NPO after MN r - cont to hold asa for colonoscopy - if BP remains stable , or starts getting elevated , can resume BB - cont statin - cont PPI - echo reviewed. - Dr. Anthony note appreciated. No further cardiac w/u was recommended - SCDS .
[2019-04-15] MEDS: ATORVASTATIN CA 40 MG TABLET (FP) PO SCH (21:37)
[2019-04-16] MEDS ORDERED: SODIUM PHOSPHATE/NA BIPHOS 133 ML ENEMA PR ONE (08:00)
[2019-04-16 08:09] LABS: BASO % 0.4 % (0-2.0); EOS % 1.3 % (0-4.5); HEMATOCRIT 40.9 % (35.4-49); HEMOGLOBIN 13.9 GM/dL (11.7-16.9); LYMPH % 21.6 % (8-40); MCHC 33.9 g/dl (32.0-35.9); MEAN CELL VOLUME 94.5 fl (80-96); MEAN PLT VOLUME 9.3 fl (7.5-11.1); MONO % 11.4 % (3.8-10.2); NEUT % 65.3 % (42.8-82.8); PLATELET COUNT 154 K/MM3 (134-434); RBC 4.33 M/mm3 (4.00-5.60); RDW 13.5 % (11.9-15.9); WHITE BLOOD COUNT 5.9 K/mm3 (4.0-10.0)
[2019-04-16 08:36] LABS: BLOOD UREA NITROGEN 8.6 mg/dL (7-18); CALCIUM 8.6 mg/dL (8.5-10.1); CREATININE 0.7 mg/dL (0.55-1.3); POTASSIUM 3.9 mmol/L (3.5-5.1)
--- NOTE | 2019-04-16 08:51 | PN ---
Teaching Attending Note Name of Resident: Rukhsana Veronica ATTENDING PHYSICIAN STATEMENT I saw and evaluated the patient. I reviewed the resident's note and discussed the case with the resident. I agree with the resident's findings and plan as documented. SUBJECTIVE: Patient is comfortable with no acute distress. OBJECTIVE: Vital Signs Temperature 98.0 F 04/16/19 06:04 Pulse Rate 72 04/16/19 06:04 Respiratory Rate 20 04/16/19 06:04 Blood Pressure 100/57 L 04/16/19 06:04 O2 Sat by Pulse Oximetry (%) 97 04/15/19 21:00 GENERAL: The patient is awake, alert, and fully oriented, in no acute distress. HEAD: Normal with no signs of trauma. EYES: PERRL, extraocular movements intact, sclera anicteric, conjunctiva clear. ENT: Ears normal, oropharynx clear without exudates, moist mucous membranes. NECK: Trachea midline, full range of motion, supple. LUNGS: Breath sounds equal, clear to auscultation bilaterally, no wheezes, no crackles, no accessory muscle use. HEART: Regular rate and rhythm, S1, S2 without murmur, rub or gallop. ABDOMEN: Soft, NT, ND, normoactive bowel sounds, no guarding, no rebound, no hepatosplenomegaly, no masses. EXTREMITIES: 2+ pulses, warm, well-perfused, no edema. NEUROLOGICAL: Cranial nerves II through XII grossly intact. Normal speech, gait not observed. PSYCH: Normal mood, normal affect. SKIN: Warm, dry, normal turgor, no rashes or lesions noted CBCD WBC 5.9 K/mm3 (4.0-10.0) 04/16/19 07:24 RBC 4.33 M/mm3 (4.00-5.60) 04/16/19 07:24 Hgb 13.9 GM/dL (11.7-16.9) 04/16/19 07:24 Hct 40.9 % (35.4-49) 04/16/19 07:24 MCV 94.5 fl (80-96) 04/16/19 07:24 MCHC 33.9 g/dl (32.0-35.9) 04/16/19 07:24 RDW 13.5 % (11.9-15.9) 04/16/19 07:24 Plt Count 154 K/MM3 (134-434) 04/16/19 07:24 MPV 9.3 fl (7.5-11.1) 04/16/19 07:24 CMP Sodium 141 mmol/L (136-145) 04/16/19 07:24 Potassium 3.9 mmol/L (3.5-5.1) 04/16/19 07:24 Chloride 108 mmol/L (98-107) H 04/16/19 07:24 Carbon Dioxide 26 mmol/L (21-32) 04/16/19 07:24 Anion Gap 7 MMOL/L (8-16) L 04/16/19 07:24 BUN 8.6 mg/dL (7-18) 04/16/19 07:24 Creatinine 0.7 mg/dL (0.55-1.3) 04/16/19 07:24 Random Glucose 86 mg/dL (74-106) 04/16/19 07:24 Calcium 8.6 mg/dL (8.5-10.1) 04/16/19 07:24 Total Bilirubin 0.5 mg/dL (0.2-1) 04/13/19 10:20 AST 11 U/L (15-37) L 04/13/19 10:20 ALT 28 U/L (13-61) 04/13/19 10:20 Alkaline Phosphatase 70 U/L (45-117) 04/13/19 10:20 Total Protein 7.2 g/dl (6.4-8.2) 04/13/19 10:20 Albumin 4.0 g/dl (3.4-5.0) 04/13/19 10:20 CARDIAC ENZYMES Creatine Kinase 53 U/L (26-308) 04/13/19 10:20 Troponin I < 0.02 ng/ml (0.00-0.05) 04/13/19 10:20 Current Medications Generic Name Dose Route Start Last Admin Trade Name Freq PRN Reason Stop Dose Admin Acetaminophen 1,000 mg 04/13/19 16:01 04/14/19 05:54 Ofirmev Injection - IVPB 1,000 mg Q6H PRN Administration PAIN LEVEL 1-5 Atorvastatin Calcium 40 mg 04/14/19 22:00 04/15/19 21:37 Lipitor - PO 40 mg HS INOCENCIA Administration Sodium Chloride 1,000 mls @ 125 mls/hr 04/13/19 13:45 04/15/19 17:03 Normal Saline - IV 125 mls/hr ASDIR INOCENCIA Administration Morphine Sulfate 2 mg 04/13/19 15:58 04/13/19 18:43 Morphine Sulfate IVPUSH 2 mg Q4H PRN Administration PAIN LEVEL 6-10 Pantoprazole Sodium 40 mg 04/13/19 16:53 04/15/19 21:37 Protonix Iv IVPUSH Not Given BID [facility] Home Medications Medication Instructions Recorded Aspirin [Aspirin EC] 81 mg PO DAILY 10/27/16 Atorvastatin Ca [Lipitor] 40 mg PO HS 10/27/16 Metoprolol Succinate [Toprol Xl -] 25 mg PO HS 10/27/16 ASSESSMENT AND PLAN: Patient is a 48 y/o male with PMHx of HTN, CAD s/p [place], s/p stents in 2011, lumbar herniated disks who presented with abd pain x 1 day and rectal bleed x 3 days. He was found to have SBO and rectal bleed. # SBO vs ileus # Rectal bleed: possible ischemic colitis # h/o CAD . asymptomatic s/p Colonscopy: revealing mild patchy erythema at sigmoid colon as per GI :prep related vs resolving colitis otherwise normal colonoscopy including normal appearing terminal ileum. No blood seen. Biopsies taken. See scanned report for details. Resume clear liquid diet and advance as tolerated -Follow up pathology results -Monitor Hb and for further evidence of bleeding -Could resume aspirin tomorrow if deemed indicated per cardiology -Outpt GI follow up SCDS .
[2019-04-16] MEDS: PANTOPRAZOLE SODIUM 40 MG VIAL IVPUSH SCH ×2 (11:18→21:05)
--- NOTE | 2019-04-16 15:15 | PN ---
Progress Note (short form) - Note Progress Note: Brief GI note Colonscopy performed today revealing mild patchy erythema at sigmoid colon ? prep related vs resolving colitis otherwise normal colonoscopy including normal appearing terminal ileum. No blood seen. Biopsies taken. See scanned report for details. Recommendations: -Resume clear liquid diet and advance as tolerated -Follow up pathology results -Monitor Hb and for further evidence of bleeding -Avoid hypotension -Could resume aspirin tomorrow if deemed indicated per cardiology -Outpt GI follow up Discussed with pts after the procedure Problem List - Problems (1) Blood per rectum Code(s): K62.5 - HEMORRHAGE OF ANUS AND RECTUM
--- NOTE | 2019-04-16 15:33 | PN ---
Progress Note (short form) - Note Progress Note: s: no cp sob palps dizzy Current Medications Generic Name Dose Route Start Last Admin Trade Name Freq PRN Reason Stop Dose Admin Acetaminophen 1,000 mg 04/13/19 16:01 04/14/19 05:54 Ofirmev Injection - IVPB 1,000 mg Q6H PRN Administration PAIN LEVEL 1-5 Atorvastatin Calcium 40 mg 04/14/19 22:00 04/15/19 21:37 Lipitor - PO 40 mg HS INOCENCIA Administration Sodium Chloride 1,000 mls @ 125 mls/hr 04/13/19 13:45 04/15/19 17:03 Normal Saline - IV 125 mls/hr ASDIR INOCENCIA Administration Morphine Sulfate 2 mg 04/13/19 15:58 04/13/19 18:43 Morphine Sulfate IVPUSH 2 mg Q4H PRN Administration PAIN LEVEL 6-10 Pantoprazole Sodium 40 mg 04/13/19 16:53 04/16/19 11:18 Protonix Iv IVPUSH Not Given BID INOCENCIA Vital Signs Period Temp Pulse Resp BP Sys/Sifuentes Pulse Ox Last 24 Hr 97.9 F-98.4 F 57-74 14-20 94-126/40-78 97-98 Constitutional: Yes: No Distress, Calm Eyes: Yes: Conjunctiva Clear, EOM Intact Respiratory: Yes: CTA Bilaterally (no wheezing or rales) Gastrointestinal: Yes: Soft (NT, no aortic enlargement) Cardiovascular: Yes: Regular Rate and Rhythm JVD: No Carotid Bruit: No PMI: Non-Displaced Heart Sounds: Yes: S1, S2 (rrr, no m/r/g) Edema: No Neurological: Yes: Alert, Oriented ...Motor Strength: WNL Psychiatric: Yes: WNL, Alert, Oriented CBC, BMP 04/16/19 07:24 04/16/19 07:24 Echo: Report Reviewed Prior Cardiac Procedures: PTCA with Stent Ejection Fraction %: LVEF > or = 40 % Imaging - Results Cat Scan: Report Reviewed EKG: Image Reviewed Assessment/Plan IMP: Colitis, etiology unclear CAD s/p remote [place] and PCI (2011) Smoker/HTN/HLD REC: 1. Resume ASA 81mg daily after foc and emphasized importance of adherence to cardiac med regimen. 2. Continue high intensity statin for LDL goal 70mg/dl 3. Target/ optimal BP is < 140/90 4. Smoking cessation strongly advised.
--- NOTE | 2019-04-16 16:40 | PN ---
Physical Exam: SUBJECTIVE: Patient seen and examined at the bedside, no acute events overnight. Patient is going for colonoscopy today. OBJECTIVE: Vital Signs Period Temp Pulse Resp BP Sys/Sifuentes Pulse Ox Last 24 Hr 97.9 F-98.4 F 57-74 14-20 94-126/40-78 97-98 GENERAL: The patient is awake, alert, and fully oriented, in no acute distress. HEAD: Normal with no signs of trauma. EYES: PERRL, extraocular movements intact, sclera anicteric, conjunctiva clear. No ptosis. ENT: Ears normal, nares patent, oropharynx clear without exudates, moist mucous membranes. NECK: Trachea midline, full range of motion, supple. LUNGS: Breath sounds equal, clear to auscultation bilaterally, no wheezes, no crackles, no accessory muscle use. HEART: Regular rate and rhythm, S1, S2 without murmur, rub or gallop. ABDOMEN: Soft, mildly distended, diffusely tender to palpation, no guarding, no rebound, EXTREMITIES: 2+ pulses, warm, well-perfused, no edema. NEUROLOGICAL: Cranial nerves II through XII grossly intact. Normal speech, gait not observed. PSYCH: Normal mood, normal affect. SKIN: Warm, dry, normal turgor, no rashes or lesions noted Laboratory Results - last 24 hr 04/16/19 04/16/19 07:24 07:24 WBC 5.9 RBC 4.33 Hgb 13.9 Hct 40.9 MCV 94.5 MCH 32.0 MCHC 33.9 RDW 13.5 Plt Count 154 MPV 9.3 Absolute Neuts (auto) 3.8 Neutrophils % 65.3 Lymphocytes % 21.6 Monocytes % 11.4 H Eosinophils % 1.3 Basophils % 0.4 Nucleated RBC % 0 Sodium 141 Potassium 3.9 Chloride 108 H Carbon Dioxide 26 Anion Gap 7 L BUN 8.6 Creatinine 0.7 Est GFR (CKD-EPI)AfAm 127.53 Est GFR (CKD-EPI)NonAf 110.04 Random Glucose 86 Calcium 8.6 Active Medications Generic Name Dose Route Start Last Admin Trade Name Freq PRN Reason Stop Dose Admin Acetaminophen 1,000 mg 04/13/19 16:01 04/14/19 05:54 Ofirmev Injection - IVPB 1,000 mg Q6H PRN Administration PAIN LEVEL 1-5 Atorvastatin Calcium 40 mg 04/14/19 22:00 04/15/19 21:37 Lipitor - PO 40 mg HS INOCENCIA Administration Pantoprazole Sodium 40 mg 04/13/19 16:53 04/16/19 11:18 Protonix Iv IVPUSH Not Given BID INOCENCIA Img: KUB w/o evidence of SBO. some evidence of centrally dilated loops of bowel , no free air. ASSESSMENT/PLAN: 48 y/o man with h/o HTN, CAD s/p [place], s/p stents in 2011, lumbar herniated disks who presented with abd pain x 1 day and rectal bleed x 3 days. He was found to have possible SBO and rectal bleed. # SBO vs ileus - s/p colonoscopy today per GI note> Colonscopy revealing mild patchy erythema at sigmoid colon ?prep related vs resolving colitis otherwise normal colonoscopy including normal appearing terminal ileum. No blood seen. Biopsies taken. - GI following, appreciate recommendations - s/p colonoscopy -Resume clear liquid diet and advance as tolerated -Follow up pathology results -Monitor Hb and for further evidence of bleeding -Avoid hypotension - pain meds prn - would use Tylenol first line IV # Rectal bleed ( melena and BRBPR)- patient no longer reporting bright red blood per rectum - holding aspirin for possible colonoscopy tomorrow - holding BB to avoid hypotension in setting of possible ischemic colitis # History of CAD - asymptomatic - continue high intensity statin for LDL goal 70mg/dl - Echo- normal structure and function, no pericardial effusion - Target/ optimal BP is < 140/90 - Resume ASA 81mg daily after colonoscopy #PPx - cont PPI - SCDS . Visit type - Emergency Visit Emergency Visit: Yes ED Registration Date: 04/13/19 Care time: The patient presented to the Emergency Department on the above date and was hospitalized for further evaluation of their emergent condition. - New Patient This patient is new to me today: No - Critical Care Critical Care patient: No - Discharge Referral Referred to [facility] No ATTENDING PHYSICIAN STATEMENT I saw and evaluated the patient. I reviewed the resident's note and discussed the case with the resident. I agree with the resident's findings and plan as documented. SUBJECTIVE: OBJECTIVE: ASSESSMENT AND PLAN:
[2019-04-16] MEDS: ATORVASTATIN CA 40 MG TABLET (FP) PO SCH (21:05)
[2019-04-17 08:02] LABS: BLOOD UREA NITROGEN 9.2 mg/dL (7-18); CALCIUM 8.4 mg/dL (8.5-10.1); CREATININE 0.8 mg/dL (0.55-1.3)
--- NOTE | 2019-04-17 08:32 | PN ---
Progress Note (short form) - Note Progress Note: Hospitalist to document today. ? No finding to explain GI bleeding on colonoscopy with his admission + guaiac and pain. ?Plan.
[2019-04-17 08:36] LABS: HEMATOCRIT 44.4 % (35.4-49); HEMOGLOBIN 14.9 GM/dL (11.7-16.9); MCH 31.9 pg (25.7-33.7); MCHC 33.5 g/dl (32.0-35.9); MEAN PLT VOLUME 9.4 fl (7.5-11.1); PLATELET COUNT 165 K/MM3 (134-434); RBC 4.67 M/mm3 (4.00-5.60); RDW 13.1 % (11.9-15.9); WHITE BLOOD COUNT 6.1 K/mm3 (4.0-10.0)
[2019-04-17] MEDS: PANTOPRAZOLE SODIUM 40 MG VIAL IVPUSH SCH (09:50)
[2019-04-17] MEDS ORDERED: ASPIRIN 81 MG CHEWABLE TABLETS PO SCH ×2 (10:00→18:00)
[2019-04-17 14:06] LABS: HEMATOCRIT 45.2 % (35.4-49); MCH 31.8 pg (25.7-33.7); MCHC 33.2 g/dl (32.0-35.9); MEAN CELL VOLUME 95.5 fl (80-96); MEAN PLT VOLUME 9.6 fl (7.5-11.1); PLATELET COUNT 167 K/MM3 (134-434); RBC 4.73 M/mm3 (4.00-5.60); RDW 13.6 % (11.9-15.9); WHITE BLOOD COUNT 8.2 K/mm3 (4.0-10.0)
--- NOTE | 2019-04-17 15:08 | PN ---
Progress Note (short form) - Note Progress Note: s: no cp sob palps dizzy Current Medications Acetaminophen (Ofirmev Injection -) 1,000 mg IVPB Q6H PRN PRN Reason: PAIN LEVEL 1-5 Last Admin: 04/14/19 05:54 Dose: 1,000 mg Atorvastatin Calcium (Lipitor -) 40 mg PO HS INOCENCIA Last Admin: 04/16/19 21:05 Dose: 40 mg Pantoprazole Sodium (Protonix Iv) 40 mg IVPUSH BID INOCENCIA Last Admin: 04/17/19 09:50 Dose: Not Given Vital Signs Period Temp Pulse Resp BP Sys/Sifuentes Pulse Ox Last 24 Hr 98.1 F-98.6 F 66-78 18-18 117-130/71-83 98-98 Constitutional: Yes: No Distress, Calm Eyes: Yes: Conjunctiva Clear, EOM Intact Respiratory: Yes: CTA Bilaterally (no wheezing or rales) Gastrointestinal: Yes: Soft (NT, no aortic enlargement) Cardiovascular: Yes: Regular Rate and Rhythm JVD: No Carotid Bruit: No PMI: Non-Displaced Heart Sounds: Yes: S1, S2 (rrr, no m/r/g) Edema: No Neurological: Yes: Alert, Oriented no jaundice, diaphoresis not agitated Echo: Report Reviewed Prior Cardiac Procedures: PTCA with Stent Ejection Fraction %: LVEF > or = 40 % Imaging - Results Cat Scan: Report Reviewed EKG: Image Reviewed Assessment/Plan IMP: Colitis, etiology unclear CAD s/p remote [place] and PCI (2011) Smoker/HTN/HLD REC: 1. Resume ASA 81mg daily when feasible, s/p colonoscopy 2. Continue high intensity statin for LDL goal 70mg/dl 3. Target/ optimal BP is < 140/90 4. Smoking cessation strongly advised.
[2019-04-17 15:22] VITALS: BP 122/68; PULSE 67; TEMP 98.7
--- NOTE | 2019-04-17 16:20 | DS ---
Physical Exam: SUBJECTIVE: Patient seen and examined OBJECTIVE: Vital Signs Period Temp Pulse Resp BP Sys/Sifuentes Pulse Ox Last 24 Hr 98.1 F-98.7 F 66-78 18-18 117-130/68-83 98-98 PHYSICAL EXAM GENERAL: The patient is awake, alert, and fully oriented, in no acute distress. HEAD: Normal with no signs of trauma. EYES: PERRL, extraocular movements intact, sclera anicteric, conjunctiva clear. ENT: Ears normal, nares patent, oropharynx clear without exudates, moist mucous membranes. NECK: Trachea midline, full range of motion, supple. LUNGS: Breath sounds equal, clear to auscultation bilaterally, no wheezes, no crackles, no accessory muscle use. HEART: Regular rate and rhythm, S1, S2 without murmur, rub or gallop. ABDOMEN: Soft, nontender, nondistended, normoactive bowel sounds, no guarding, no rebound, no hepatosplenomegaly, no masses. EXTREMITIES: 2+ pulses, warm, well-perfused, no edema. NEUROLOGICAL: Cranial nerves II through XII grossly intact. Normal speech, gait not observed. PSYCH: Normal mood, normal affect. SKIN: Warm, dry, normal turgor, no rashes or lesions noted. LABS Laboratory Results - last 24 hr 04/17/19 04/17/19 04/17/19 07:15 07:15 13:22 WBC 6.1 8.2 RBC 4.67 4.73 Hgb 14.9 15.0 Hct 44.4 45.2 MCV 95.0 95.5 MCH 31.9 31.8 MCHC 33.5 33.2 RDW 13.1 13.6 Plt Count 165 167 MPV 9.4 9.6 Sodium 140 Potassium 4.0 Chloride 108 H Carbon Dioxide 27 Anion Gap 5 L BUN 9.2 Creatinine 0.8 Est GFR (CKD-EPI)AfAm 120.72 Est GFR (CKD-EPI)NonAf 104.16 Random Glucose 103 Calcium 8.4 L HOSPITAL COURSE: Date of Admission:04/13/19 Mr. Jama is a 48 year old male with past medical history of myocardial infarction (s/p) stent, hyperlipidemia and hypertension who presented to the ED with abdominal pain, vomiting and bloody stools. An initial CT showed dilatation of small bowel loops suspicious for a small bowel obstruction and a fecal occult blood test was also positive. An EKG was recorded in the ED and showed a normal sinus rhythm with incomplete right bundle branch block. Patient was admitted for further management to rule out bowel obstruction. Initial lab values such as elevated hemoglobin, hematocrit and WBCs pointed to dehydration which was managed with IV fluids and these values normalized. His GI symptoms were managed with bowel rest and IV medication. Surgery was consulted but as patient started passing gas, it was determined that surgical intervention was not immediately necessary and outpatient colonoscopy was recommended. An X-ray on the second hospital day showed distended bowel loops but not obvious obstruction. The patient was advanced to a clear liquid diet and had a dark black bowel movement. An inpatient colonoscopy was recommended by gastroenterology. Cardiology saw the patient and there were no cardiac contraindications for the procedure. Colonoscopy results showed patchy erythema at the sigmoid colon possibly due to resolving colitis or bowel prep but otherwise a normal result with biopsies taken. Patient continued to have 2 episodes of bloody bowel movements after colonoscopy, however a follow up X- ray showed no acute pathology. Patient was stable and ready for discharge; he is to follow up on biopsy results as well as his PCP and gastroenterology upon discharge. Date of Discharge: 04/17/19 Minutes to complete discharge: 40 Discharge Summary Problems reviewed: Yes Reason For Visit: SMALL BOWEL OBSTRUCTION Current Active Problems Abnormal CT of the abdomen (Acute) Blood per rectum (Acute) CAD (coronary artery disease), nez perce coronary artery (Acute) Colitis (Acute) Dehydration (Acute) Hyperlipidemia (Acute) Hypertension (Acute) Melena (Acute) Nausea and vomiting (Acute) SBO (small bowel obstruction) (Acute) Tobacco dependence due to cigarettes (Acute) Upper abdominal pain (Acute) Condition: Improved - Instructions Diet, Activity, Other Instructions: You were in the hospital because you were experiencing symptoms of bright red blood from your rectum. While in the hospital you had imaging which included an abdominal Xray and CT scan, there was some evidence of distended loops of bowel but there was no obvious obstruction. While you were in the hospital you also had 1 BM which was black. Your symptoms improved with bowel rest and fluids. You had a colonoscopy to further evaluate your GI symptoms which showed areas of redness that could be due to colitis or the colonoscopy prep, there was no acute finding. You should follow up with GI for pathology results from biopsies taken during the colonoscopy. Please resume all of your home medications as prescribed: Please follow up with the following doctors within 1 week of discharge from the hospital: - Dr. Haddad, your primary care doctor - Dr. Sweet , the GI doctor you saw in the hospital If you experience symptoms of bleeding from the rectum, dark black stools, dizziness, feeling faint or falling, please return to the Emergency Department immediately. Referrals: Ander Sweet DO [Staff Physician] - 1 Week Guy Haddad MD [Primary Care Provider] - 1 Week Disposition: HOME - Home Medications Comprehensive Discharge Medication List: Ambulatory Orders Aspirin [Aspirin EC] 81 mg PO DAILY 10/27/16 Atorvastatin Ca [Lipitor] 40 mg PO HS 10/27/16 Metoprolol Succinate [Toprol Xl -] 25 mg PO HS 10/27/16 This patient is new to me today: No Emergency Visit: Yes ED Registration Date: 04/13/19 Care time: The patient presented to the Emergency Department on the above date and was hospitalized for further evaluation of their emergent condition. Critical Care patient: No - Discharge Referral Referred to [facility] No ATTENDING PHYSICIAN STATEMENT I saw and evaluated the patient. I reviewed the resident's note and discussed the case with the resident. I agree with the resident's findings and plan as documented. SUBJECTIVE: OBJECTIVE: ASSESSMENT AND PLAN:
--- NOTE | 2019-04-17 17:34 | PATH ---
Surgical Pathology Report Patient Name: LENIN ENRIQUE Med. Rec. #: [id number] /Age/Gender: 1970 (Age: 48) / M Account: [id number] Location: [facility] MED/SURG Taken: 04/16/2019 Received: 04/16/2019 Reported: 04/17/2019 Physicians: Danika Haddad MD Specimen(s) Received A: LEFT COLON B: SIGMOID COLON C: RECTUM Clinical History Abdominal pain, rectal bleeding Postoperative diagnosis: Normal colon Final Diagnosis A. COLON, LEFT, BIOPSY: COLONIC MUCOSA WITH MILD SUPERFICIAL HYPERPLASTIC FEATURES. B. SIGMOID COLON, BIOPSY: COLONIC MUCOSA WITH SMALL LYMPHOID AGGREGATE C. RECTUM, BIOPSY: COLONIC MUCOSA WITH PROMINENT LYMPHOID AGGREGATE. Electronically Signed Zena Hodgson M.D. Gross Description A. Received in formalin, labeled "left colon" are 3 yousif, irregular portions of soft tissue measuring 0.1 and 0.2 cm. in greatest dimension. The specimens are submitted in toto in one cassette. B. Received in formalin, labeled "sigmoid colon" is a yousif, irregular portion of soft tissue measuring 0.2 cm. in greatest dimension. The specimen is submitted in toto in one cassette. C. Received in formalin, labeled "rectum" are 2 yousif, irregular portions of soft tissue measuring 0.5 and 1 cm. in greatest dimension. The specimens are submitted in toto in one cassette. MLSZ/04/16/2019 sanml/04/16/2019
== END 2019-04-17 17:28 | disposition home or self-care (01) | DRG 378 ==
LOC: JER 08:34 → JERBED 14:27 → J7W 20:36
PROVIDERS: ADMIT Internal Medicine; ATTEND Internal Medicine
PROC: 0DBP8ZX Excision of Rectum, Via Natural or Artificial Opening Endoscopic, Diagnostic (ICD-10-PCS; 2019-04-16)
PROC: 0DBN8ZX Excision of Sigmoid Colon, Via Natural or Artificial Opening Endoscopic, Diagnostic (ICD-10-PCS; principal; 2019-04-16 11:15)
DX: K62.5 Hemorrhage of anus and rectum (principal); K56.609 Unspecified intestinal obstruction, unspecified as to partial versus complete obstruction; K55.9 Vascular disorder of intestine, unspecified; K56.7 Ileus, unspecified; I25.10 Atherosclerotic heart disease of native coronary artery without angina pectoris; Z98.61 Coronary angioplasty status; E86.0 Dehydration; E78.5 Hyperlipidemia, unspecified; I10 Essential (primary) hypertension; R11.2 Nausea with vomiting, unspecified; F17.210 Nicotine dependence, cigarettes, uncomplicated; K64.8 Other hemorrhoids; I95.9 Hypotension, unspecified
CPT/HCPCS: 36415; 71045-TC-FY; 74018-TC-FY; 74177-TC; 76700-TC; 80048; 80053; 82272; 82550; 83605; 83690; 83735; 84100; 84484; 85025; 85027; 85610; 85730; 86850; 86870; 86900; 86901; 86902; 88305-TC; 93005; 93010; 93306-TC; 99284-25; J0131; J7030

== ENCOUNTER 2021-01-27 19:28 | Emergency (ER) | payer BC ==
[2021-01-27 19:35] VITALS: BP 144/82; PULSE 76; TEMP 98.7; BMI 28.7
[2021-01-27] MEDS ORDERED: SODIUM CHLORIDE 1,000 ML IV STA (21:16)
[2021-01-27 22:03] LABS: EPI CELLS 2 /uL (0-25.1); HYALINE CASTS 2 /uL (0-3.1); PH,URINE 5.5 (5.0-8.0); URINE APPEARANCE CLEAR; URINE BACTERIA 4 /uL (0-1359); URINE BILIRUBIN NEGATIVE (NEGATIVE); URINE COLOR DK YELLOW; URINE GLUCOSE (UA) NEGATIVE (NEGATIVE); URINE KETONE 1+ (NEGATIVE); URINE LEUK ESTERASE NEGATIVE (NEGATIVE); URINE NITRITE NEGATIVE (NEGATIVE); URINE PROTEIN NEGATIVE (NEGATIVE); URINE RBC 407 /uL (0-23.9); URINE WBC 7 /uL (0-25.8)
[2021-01-27 22:17] LABS: BASO % 0.2 % (0-2.0); EOS % 0.1 % (0-4.5); HEMATOCRIT 48.5 % (35.4-49); LYMPH % 9.6 % (8-40); MCH 31.7 pg (25.7-33.7); MEAN CELL VOLUME 96.2 fl (80-96); MEAN PLT VOLUME 9.6 fl (7.5-11.1); MONO % 5.9 % (3.8-10.2); NEUT % 84.2 % (42.8-82.8); PLATELET COUNT 182 10^3/uL (134-434); RBC 5.04 M/mm3 (4.00-5.60); RDW 13.5 % (11.9-15.9); WHITE BLOOD COUNT 12.2 K/mm3 (4.0-10.0)
[2021-01-27 22:39] LABS: CALCIUM 9.2 mg/dL (8.5-10.1)
[2021-01-27 22:40] LABS: ALBUMIN 4.2 g/dl (3.4-5.0)
[2021-01-27 22:44] LABS: BILIRUBIN,TOTAL 0.4 mg/dL (0.2-1); TOT PROT 7.3 g/dl (6.4-8.2)
[2021-01-27] MEDS ORDERED: TAMSULOSIN HCL 0.4 MG CAP PO ONE (23:35)
[2021-01-28] MEDS ORDERED: TAMSULOSIN HCL 0.4 MG CAP ONE (00:03)
== END 2021-01-28 00:14 | disposition home or self-care (01) ==
LOC: JER 19:28
DX: N20.1 Calculus of ureter (principal)
CPT/HCPCS: 36415; 74176-TC; 80053; 81003; 85025; 99285-25